=== PATIENT | male | born 1945 | race Caucasian/White ===

== ENCOUNTER 2018-01-23 10:27 | Emergency (ER) | payer MEDICARE, OTHER, SELFPAY ==
[2018-01-23 10:35] VITALS: BP 165/75; PULSE 77; RESP 18; TEMP 36.6; O2SAT 99
--- NOTE | 2018-01-23 10:56 | ED_ITS ---
HPI - Fall General Chief Complaint: Fall Stated Complaint: Fell and hit head on sidewalk Time Seen by Provider: 01/23/18 10:49 Source: patient Mode of arrival: ambulatory Limitations: no limitations History of Present Illness HPI Narrative: This is a 72-year-old male who comes to the emergency department with complaint of ground level fall and hitting the back of his head. Patient was helping move a couch and was walking backwards when he tripped and fell backwards striking the back with his head on the edge of the sidewalk. Patient states that he is not sure if he had a loss of consciousness. He remembers falling but he feels like things are a little working for a short period of time. He denies any headache at this time, he denies any vision changes, he denies any neck or back pain. He denies any nausea or vomiting. He denies any numbness or tingling or weakness of extremities. He is able to ambulate without any issue. He does not take any blood thinners. He states that he does not know when he caught did not have any bleeding. He denies any other injuries to his extremities. This happened about 10:30 a.m. Related Data Home Medications Medication Instructions Recorded Confirmed Eye Drops 1 drp OPHTHALMIC (EYE) QAM 01/23/18 01/23/18 vit C,Y-Ay-sbrnt-lutein-zeaxan 1 cap PO Q1-2D 01/23/18 01/23/18 [PreserVision AREDS 2] Allergies Allergy/AdvReac Type Severity Reaction Status Date / Time No Known Drug Allergies Allergy Verified 01/23/18 10:35 Review of Systems Review of Systems All systems reviewed & are unremarkable except as noted in HPI and below Constitutional Denies headache(s) Eyes Denies change in vision ENT Ears, Nose, Mouth, and Throat: Denies dizziness, Denies headache(s) and Denies neck pain Cardiovascular Denies chest pain and Denies dyspnea Respiratory Denies dyspnea Gastrointestinal Gastrointestinal: Denies nausea and Denies vomiting Musculoskeletal Denies back pain, Denies neck pain and Denies numbness Integumentary/Breasts Denies bleeding lesions and Denies lesions Neurologic Denies abnormal movements, Denies abnormal speech, Denies confusion, Denies dizziness, Denies headache(s), Denies lack of coordination, Reports memory loss (Possible), Denies numbness and Denies sensory deficit Psychiatric Denies confusion and Reports memory loss (Possible) Exam Narrative Exam Narrative: GEN: Patient appears in no acute distress. HEAD: No evidence of trauma except for slight bruising on the posterior scalp, no hematoma palpated, no raccoon/Sarkar sign. NECK: Nontender, painless range of motion, trachea midline Negative Nexus criteria, there is no mid line tenderness, distracting injury, altered mental status, neuro deficit, recent EtOH. EYES: PERRLA, EOMI ENT: External inspection normal, trachea is midline, TM's are normal no hemotypanum, Nares are clear, no septal hematoma, no dental or oral injury, airway is normal and with normal occlusion, No bony tenderness RESP: Chest is nontender and has symmetric movement, no ecchymosis, breath sounds are normal no crackles, wheezes or rales CVS: Heart sounds are normal, no murmur noted, No JVD. ABG/GI: Nontender, soft, normal bowel sounds, no distention, no organomegaly. NEURO: Oriented AOx3, neuro is grossly intact, sensation and motor is normal all 4 extremities moving, cranial nerves II through XII are intact, GCS is 15 PSYCH: Normal mood and affect SKIN: Intact, warm and dry, no crepitus and without decubitus BACK: No CVA tenderness, no vertebral tenderness, no step-off's, no crepitus EXT: Atraumatic, hips are nontender, no pedal edema, normal color and temperature, normal range of motion of extremities with normal tendon exam, 2+ pulses in all four extremities Initial Vital Signs Initial Vital Signs: Vital Signs Temperature 97.8 F 01/23/18 10:35 Pulse Rate 77 01/23/18 10:35 Respiratory Rate 18 01/23/18 10:35 Blood Pressure 165/75 H 01/23/18 10:35 Pulse Oximetry 99 01/23/18 10:35 PENDING SALE TO [facility] Social History Smoking Status: Never smoker Scores GCS [place] coma scale eye opening: Spontaneous [place] coma scale verbal response: Orientated [place] coma scale motor response: Obey commands [place] coma scale total score: 15 Course Orders Ordered: ED Orders 01/23/18 10:55 CT head/brain wo con Stat Vital Signs - 8 hr 01/23/18 10:35 01/23/18 12:07 Temperature 97.8 F Pulse Rate 77 61 Respiratory Rate 18 18 Blood Pressure 165/75 H 144/73 H Pulse Oximetry 99 98 MDM - Fall Imaging Data CT scan - head: Radiologist's impression: [address] [address] [address] Scan Report Signed Patient: Pérez Ewing [facility]#: [id number] : 7Acct:[id number] Age/Sex: 72 / MDate of Service: 01/23/18 Loc: ED Accession Number: [id number] Procedure: CT head/brain wo con Ordering Provider: Krys Mccoy D.O. PROCEDURE: CT HEAD/BRAIN WO CON INDICATIONS: ground level fall, ? LOC, mild bruising on scalp TECHNIQUE: Noncontrast 4.5 mm thick angled axial sections acquired from the foramen magnum to the vertex, with coronal and sagittal reformats. For radiation dose reduction, the following was used: automated exposure control, adjustment of mA and/or kV according to patient size. COMPARISON: None. FINDINGS: Image quality: Excellent. CSF spaces: Basal cisterns are patent. No extra-axial fluid collections. The ventricles are symmetric in size and shape. Brain: No intracranial bleeds or masses. There is a large fat attenuation lesion with internal soft tissue attenuation seen in the right inferior anterior frontal lobe/straight gyrus. This measures approximately 2.1 x 1.2 cm on image 11 series 2. There are additional areas of what appear to be subarachnoid fat attenuation along both sides of the anterior and posterior falx as well as at the frontoparietal lobes and the vertex. There is cerebral volume loss for age, with resultant ventricular and sulcal prominence. There are periventricular and deep white matter chronic small vessel ischemic changes. There is intracranial internal carotid artery atherosclerosis. Skull and face: Calvarium and visualized facial bones appear intact, without suspicious lesions. Mild left posterior scalp swelling. Sinuses: Visualized sinuses and mastoids are clear. 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 There is complex appearance of the lesion seen in the right anterior-inferior frontal lobe and nonemergent followup with MRI of the brain with and without contrast is necessary, especially given the absence of comparison studies. Findings and recommendations are personally telephoned and discussed with Dr. Mccoy in the emergency department on 01/23/18. No acute intracranial process seen. Mild left posterior scalp swelling. Dictated by: Arnaud Almeida M.D. on 01/23/2018 at 11:16 Approved by: Arnaud Almeida M.D. on 01/23/2018 at 11:33 MDM Narrative Medical decision making narrative: Dr. Gongora call with results of patient's head CT. They do see multiple areas of fat attenuation suggestive of either multiple intracranial lipoma is and/or a chronic ruptured dermoid. Discussed that patient needs nonemergent follow-up with MRI of the brain with and without contrast especially as there is no compression or comparison studies. Patient has not had any neurologic changes or other issues that would suggest that he needs emergent MRI at this time. Findings were discussed with patient and referred back to his primary care for further evaluation. We also discussed signs and symptoms for potential concussion as he felt sort of murky about the timeline although he was not sure that he had a loss of consciousness with his fall. Discharge Plan Departure Patient Disposition: Home Clinical Impression: Concussion Discharge Date/Time: 01/23/18 12:08 Interventions: ED Discharge Assessment Last Done: 01/23/18 12:07 Instructions: Concussion Activity Restrictions/Additional Instructions: Your CT today shows several areas suggesting either multiple lipoma and/or a ruptured dermoid within the brain. Radiology recommends a nonemergent follow- up with MRI of the brain. Call your primary care physician today to set up a follow-up appointment for this imaging. Return to the emergency department for sudden severe headaches, vision changes, new weakness, numbness or decreased sensation or persistent vomiting. Or any other new or concerning symptoms. Prescriptions: No Action vit C,E-Pt-qhchv-lutein-zeaxan [PreserVision AREDS 2] [id number] mg-unit-mg- mg Capsule 1 cap PO Q1-2D RF: 0 Eye Drops 1 drp ophthalmic (eye) QAM RF: 0
[2018-01-23 12:07] VITALS: BP 144/73; PULSE 61; RESP 18; O2SAT 98
== END 2018-01-23 12:08 | disposition home or self-care (01) ==
PROVIDERS: Emergency Provider Emergency Medicine; Family Provider Family Medicine; PCP Family Medicine
DX: S06.0X1A Concussion with loss of consciousness of 30 minutes or less, initial encounter (principal); W01.198A Fall on same level from slipping, tripping and stumbling with subsequent striking against other object, initial encounter
CPT/HCPCS: 70450; 99282; 99284

== ENCOUNTER → 2018-02-04 17:36 | Outpatient (CLI) | payer MEDICARE, OTHER, SELFPAY ==
--- NOTE | 2018-02-04 17:41 | DI.MRI.S_ITS ---
PROCEDURE: MR HEAD/BRAIN WO/W CON INDICATIONS: POST CONCUSSION SYNDROME TECHNIQUE: Noncontrast axial T1 spin echo, axial T2 fast spin echo, sagittal and axial FLAIR, coronal T2 fast spin echo, axial gradient echo, axial diffusion and ADC through the brain. After the administration of contrast, axial and coronal T1 spin echo with fat saturation through the brain. COMPARISON: Head CT dated 01/23/18. FINDINGS: Image quality: Excellent. CSF spaces: Basal cisterns are patent. No extra-axial fluid collections. Ventricles are normal in size and shape. Brain: No midline shift. No intracranial bleeds. The previously described lesion in the anterior right frontal lobe demonstrates fat signal intensity without definite enhancement. There are internal stippled appearance, and possible septation. This measures 1.3 x 2.8 cm image 13 series 6. No abnormal intracranial enhancement. Other low-attenuation areas described within the CT on 01/23/18 demonstrate no associated enhancement and fluid signal intensity (rather than fat) presumably atrophy or encephalomalacia. Incidental empty sella appearance, technically non-specific. There is cerebral volume loss for age. There is periventricular white matter chronic small vessel ischemic change. The brainstem appears normal. Diffusion-weighted images demonstrate no acute ischemic insults. No chronic ischemic insults. Normal intravascular flow voids are present. Skull and face: Calvarial marrow is normal in signal. Orbits appear normal. Sinuses: Mild bilateral maxillary sinus disease IMPRESSION: Fat signal intensity lesion involving the anterior right frontal lobe, as seen on the prior comparison head CT. No definite associated enhancement although mildly complex internal appearance. Recommend continued followup with a contrast-enhanced brain MRI in 3 months given the absence of more remote comparison studies to exclude malignant possibilities. Dictated by: Arnaud Almeida M.D. on 02/05/2018 at 7:53 Approved by: Arnaud Almeida M.D. on 02/05/2018 at 7:53
== END ==
PROVIDERS: Family Provider Family Medicine; PCP Family Medicine; Visit Provider Family Medicine
DX: F07.81 Postconcussional syndrome (principal)
CPT/HCPCS: 70553; A9579

== ENCOUNTER → 2019-03-17 10:17 | Outpatient (CLI) | payer MEDICARE, OTHER, SELFPAY ==
--- NOTE | 2019-03-17 | DI.RAD.S_ITS ---
PROCEDURE: XR SHOULDER RT MIN 2V INDICATIONS: RIGHT SHOULDER PAIN TECHNIQUE: 3 views of the shoulder were acquired. COMPARISON: [facility], CR, CLAVICLE LEFT 2 VIEWS, 12/30/2013, 16:28. FINDINGS: Bones: No fractures or dislocations. No suspicious bony lesions. Visualized ribs appear intact. Soft tissues: No suspicious soft tissue calcifications. IMPRESSION: No definite source of pain is found. Depending on clinical status followup by MR scanning may be warranted. Dictated by: Kanu Schneider M.D. on 03/17/2019 at 12:11 Approved by: Kanu Schneider M.D. on 03/17/2019 at 12:12
== END ==
PROVIDERS: PCP Family Medicine; Visit Provider Family Medicine
DX: M25.511 Pain in right shoulder (principal)
CPT/HCPCS: 73030

== ENCOUNTER 2019-06-21 12:39 | Day surgery (SDC) | payer MEDICARE, OTHER, SELFPAY ==
--- NOTE | 2019-06-21 | PATH_ITS ---
[facility] Accession Number: [id number] . 01 Material submitted: . PART A: colon - 8MM TRANSVERSE COLON POLYP AND 6 MM TRANSVERSE COLON POLYP PART B: colon - 3MM SIGMOID COLON POLYP PART C: colon - 8MM SIGMOID COLON POLYP AND 2MM SIGMOID COLON POLYP . 02 Diagnosis: A. Transverse Colon Polyps, 8 mm, 6 mm, Biopsies: Fragments of tubular adenoma (two polyps removed). . B. Sigmoid Colon Polyp, 3 mm, Biopsy: Tubular adenoma. . C. Sigmoid Colon Polyps, 8 mm, 2 mm, Biopsies: Tubular adenoma x1. Hyperplastic polyp x1. [facility] 06/23/2019 0936 Local . 02 Electronically signed: . Sergio Abraham MD, PhD, Pathologist NPI- [id number] . 01 Gross description: . A. Received in formalin and labeled with 8 mm transverse colon polyp and 6 mm transverse colon polyp are three fragments of sorenson, soft tissue measuring 0.5 x 0.2 x 0.1 to 0.3 x 0.2 x 0.2 cm, and one larger fragment of sorenson, soft tissue measuring 0.6 x 0.3 x 0.5 cm. The three smaller fragments are entirely submitted in cassette A1. The larger fragment is inked at the possible resection margin, trisected, and entirely submitted in cassette A2. B. Received in formalin and labeled with 3 mm sigmoid colon polyp are three fragments of sorenson soft tissue measuring 0.4 x 0.3 x 0.3 to 0.3 x 0.3 x 0.1 cm. All three fragments are entirely submitted in cassette B1. C. Received in formalin and labeled with 8 mm sigmoid colon polyp and 2 mm sigmoid colon polyp are two fragments of sorenson soft tissue measuring 0.7 x 0.7 x 0.3 to 0.3 x 0.2 x 0.2 cm. The larger fragment is trisected and entirely submitted in cassette C1. The smaller fragment is entirely submitted in cassette C2. (BJ:[id number]) /MRV 06/22/2019 0805 Local . 02 Pathologist provided ICD-10: D12.3, D12.5 . 02 CPT . 953638, 870503, 714533 Performed at: 01 [facility] [address] [id number] MD Armin Flores MD Phone: [phone] Performed at: 02 [facility] [address] [place], [place] [id number] MD Letty Mays MD Phone: [phone]
--- NOTE | 2019-06-21 12:23 | PM.HP.1 ---
History of Present Illness History of Present Illness Date Patient Seen: 06/21/19 Chief complaint: [id number] Narrative: 74 year old male comes in today for consideration of a screening colonoscopy. Last colonoscopy on 02/11/2008 indicated for screening, normal. Prior to that had a colonoscopy approximately 2002 that revealed 1 tubular adenoma, size unknown. There have been no lower GI symptoms suggesting disease such as change in bowel habits, bleeding, abdominal pain or anemia. There's been no family history of colon cancer or colon polyps. Overall health issues have been stable, including no major cardiac events for at least 6 weeks. PCP: Dr. Santana Past medical history: Pre-diabetes Lumbar disc disease Seborrheic keratosis Sebaceous cyst Actinic keratosis Mass lesion, right anterior lobe brain, likely fatty lesion Lipoma AC joint pain Postconcussion syndrome Hyperlipidemia Borderline anemia Acute gout Eustachian tube dysfunction Past surgical history: Cholecystectomy, 2004 Family history: No colon cancer or colon polyps Social history: . Patient History Family & Social History Tobacco & Substance use: Smoking Status Never smoker alcohol intake frequency 0-2 drinks per day Substance Use Type does not use Meds Home Medications and Allergies Home Medications Medication Instructions Recorded Confirmed Type Eye Drops 1 drp OPHTHALMIC (EYE) QAM 01/23/18 01/23/18 History vit C,Q-Ao-xuhgr-lutein-zeaxan 1 cap PO Q1-2D 01/23/18 01/23/18 History [PreserVision AREDS 2] Allergies Allergy/AdvReac Type Severity Reaction Status Date / Time No Known Drug Allergies Allergy Verified 01/23/18 10:35 Review of Systems Review of Systems ROS: Yes All systems reviewed with the patient and are negative except as otherwise documented Exam Narrative Exam Narrative: GENERAL: Alert and oriented, appearing stated age and in no acute distress. HEENT: Head normocephalic/atraumatic. LUNGS: Clear to ausculation bilaterally, no wheezes, rhonchi or rales. CV: Normal S1 and S2 with regular rate and rhythm, no audible murmurs, rubs or gallops. ABDOMEN: Soft, non-tender, non-distended, no organomegaly. Positive bowel sounds. EXTREMITIES: No clubbing, cyanosis, or edema. NEURO: Cranial nerves II through XII grossly intact, no focal deficits. PSYCH: Alert and oriented x 3. SKIN: No concerning lesions. Assessment & Plan Assessment & Plan narrative: 1. History of colon polyps 2. Screening for colon cancer Plan for colonoscopy. The nature and character of the procedure as well as anticipated results were discussed. The possibility of not completing the procedure was also discussed. Possible complications including aspiration pneumonia, bleeding, perforation and reaction to medications either for sedation or preparation and missed lesions were discussed. Questions were answered and proceeding to the colonoscopy was elected. Informed consent signed. I sincerely appreciate the referral allowing me to participate in this patient's care. Please contact me with any questions or concerns.
--- NOTE | 2019-06-21 12:31 | PM.OP.ENDO ---
Operative Date/Time/Diagnoses Date of procedure: 06/21/19 Time of procedure: 14:37 Pre-op diagnosis: 1. History of colon polyps 2. Screening for colon cancer Post-op diagnosis: other (1. Transverse polyp x2, 6-8 mm, sigmoid polyp x3, 2-8 mm) Procedure & Clinicians Study performed: Colonoscopy Same procedure as scheduled: Yes Indications: 1. History of colon polyps 2. Screening for colon cancer Surgeon: Layla Aly Procedure Notes SCOAP/Timeout: 14:34 Procedure in detail: ENDOSCOPIST: Layla Aly MD Sedation RN: Melanie Hall RN Sedation start time: 14:35 Sedation end time: 15:25 PROCEDURE: Colonoscopy with cold snare and methylene blue left INDICATIONS: 1. History of colon polyp 2. Screening for colon cancer MEDICATION: Levsin 0.125 mg sublingual, incremental doses of Versed and fentanyl until appropriate level sedation achieved. ASA CLASS: 2 CECAL WITHDRAWAL TIME: 40 COMPLICATIONS: None. EXTENT OF PROCEDURE: Cecum. QUALITY OF PREP: Good with portions of liquid stool. PROCEDURE: Prior to insertion of the colonoscope, a digital rectal examination was accomplished with circumferential palpation of the distal rectal mucosa without significant findings being noted. The high-definition colonoscope was passed into the rectum in the usual fashion and advanced over to the cecum without difficulty. The ileocecal valve, appendiceal stoma, and medial wall all could be inspected and no abnormalities were seen. ASCENDING COLON: As the colonoscope was withdrawn, care was taken to expose and inspect the haustral folds and no abnormalities were seen. HEPATIC FLEXURE: Normal no polyps, diverticula or other abnormalities. TRANSVERSE COLON: There was an 8 mm polyp lifted with methylene blue and removed with cold snare. A 6 mm polyp was also appreciated removed with cold biopsy forceps. Otherwise, no diverticula or other abnormalities. DESCENDING COLON: Normal no polyps, diverticula, or other abnormalities. SIGMOID COLON: 3 polyps noted, 2, 3, and 8 mm, the smaller polyps were removed with cold snare. The 8 mm polyp was lifted with methylene blue and lives with cold snare. Otherwise, minor diverticulosis seen but no other abnormalities. RECTUM: Normal. J maneuver was produced. There was no significant perianal disease. The J maneuver was broken. The remainder of the rectum was inspected and there was no external hemorrhoid disease. The scope was withdrawn. IMPRESSION: 1. Transverse polyp x2, 6 and 8 mm. Larger polyp lifted with methylene blue and removed with cold snare. 6 mm polyp removed with cold biopsy forceps. 2. Sigmoid polyp x3, 2-8 mm, largest polyp lifted with methylene blue and removed with cold snare. Smaller polyps removed with cold biopsy forceps. 3. Diverticulosis, left-sided PLAN: 1. Follow-up in clinic status post pathology results. The possibility of a missed lesion including a malignancy has been discussed with the patient previously. Potential alarm symptoms have been discussed and should be reported immediately. Scope withdrawal time: 40 Sedation minutes: 50 Findings: diverticulosis Specimen(s): other (as above) Complications: none Impression: As above. Post-procedure Recommendations: Will call with biopsy results Follow up: weeks (2) Disposition: PACU
[2019-06-21] MEDS: SODIUM CHLORIDE 0.9% 1,000 ML 200 ML IV (13:09)
[2019-06-21] MEDS: HYOSCYAMINE 0.125 MG TABLET PO (13:10)
[2019-06-21 13:14] VITALS: BP 143/74; PULSE 63; RESP 14; TEMP 36.6; O2SAT 96
[2019-06-21] MEDS: fentaNYL 250 MCG/5 ML INJ IV (15:38)
[2019-06-21] MEDS: MIDAZOLAM 5 MG/5 ML VIAL IV (15:39)
[2019-06-21] MEDS: METHYLENE BLUE 50 MG/10 ML VIAL IV (15:40)
[2019-06-21 15:52] VITALS: BP 149/76; PULSE 59; RESP 15; TEMP 36.2; O2SAT 97
== END 2019-06-21 16:05 | disposition home or self-care (01) ==
PROVIDERS: PCP Family Medicine; Referring Provider Student in an Organized Health Care Education/Training Program; Visit Provider Student in an Organized Health Care Education/Training Program
PROC: 0DJD8ZZ Inspection of Lower Intestinal Tract, Via Natural or Artificial Opening Endoscopic (ICD-10-PCS; CPT 45378; principal; 2019-06-21 14:00)
DX: Z12.11 Encounter for screening for malignant neoplasm of colon (principal); Z86.010 Personal history of colon polyps; K57.30 Diverticulosis of large intestine without perforation or abscess without bleeding; D12.3 Benign neoplasm of transverse colon; D12.5 Benign neoplasm of sigmoid colon
CPT/HCPCS: 45385; J2250; J3010; Q9968

== ENCOUNTER 2019-07-28 17:27 | Emergency (ER) | payer MEDICARE, OTHER, SELFPAY ==
[2019-07-28] VITALS (10 sets, daily range): BP systolic 150–174; BP diastolic 72–88; PULSE 70–87; RESP 10–21; TEMP 36.3–36.9; O2SAT 96–100
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
--- NOTE | 2019-07-28 17:18 | DI.RAD.S_ITS ---
PROCEDURE: XR CHEST 1V INDICATIONS: syncope TECHNIQUE: One view of the chest was acquired. COMPARISON: None. FINDINGS: Surgical changes and devices: None. Lungs and pleura: Lungs are clear. No pleural effusions or pneumothorax. Mediastinum: Mediastinal contours appear normal. Heart size is normal. Bones and chest wall: No suspicious bony lesions. Chronic left midshaft clavicular fracture. Overlying soft tissues appear unremarkable. IMPRESSION: No acute process. Dictated by: Kimberly Solis M.D. on 07/28/2019 at 17:54 Approved by: Kimberly Solis M.D. on 07/28/2019 at 17:55
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
--- NOTE | 2019-07-28 17:37 | ED.TRAUMA ---
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 there is a wound over the fracture site, you have been given antibiotics to prevent infection. Please take these as directed. Your prescriptions were sent to [facility] in [place]. You have been prescribed a medication for nausea, the pain medication can make you nauseated. You have been prescribed a narcotic medication, this medication can make you drowsy. Do not drive while using this medication or perform activities that require mental alertness. These medications can also make you constipated, please use [id number] docusate sodium as needed for constipation. You have sustained a concussion. Please reduce activity that would worsen symptoms such as bright lights, prolonged reading, prolonged screen time, or rigorous activity. You will receive a call from the [facility] in the next few days to schedule a follow-up appointment. This appointment may be via telephone or telemedicine. They will instructed you as needed. Return emergency department for any new or worsening symptoms such as vision changes, uncontrollable vomiting, altered mental status, or any other concerns. Prescriptions: New amoxicillin-pot clavulanate [Augmentin] 875-125 mg tablet 1 tab PO BID 10 Days Qty: 20 RF: 0 hydrocodone-acetaminophen [Avenal] 5-325 mg tablet 1 tab PO BID PRN (Reason: pain) Qty: 14 RF: 0 ondansetron 4 mg tablet,disintegrating 4 mg PO Q8H PRN (Reason: nausea and vomiting) Qty: 14 RF: 0 No Action vit C,F-Rz-ivwxm-lutein-zeaxan [PreserVision AREDS-2] [id number]-xwsc-ij-mg Capsule 1 cap PO Q1-2D RF: 0 Eye Drops 1 drp ophthalmic (eye) QAM RF: 0 Referrals: Hal Santana MD [Primary Care Provider] -
[2019-07-28 17:40] LABS: Add Manual Diff / Slide Review NO; Basophils Absolute Auto 0 /uL (0-100); Basophils Percent Auto 0.4 % (0-2); Eosinophils Absolute Auto 0 /uL (0-450); Eosinophils Percent Auto 0.5 % (2-4); Hematocrit 37.1 % (41-53); Hemoglobin 12.8 g/dL (13.5-17.5); Lymphocytes Absolute Auto 1200 /uL (1100-4500); Lymphocytes Percent Auto 26.9 % (25-40); Mean Corpuscular HGB Conc 34.5 % (30-36); Mean Corpuscular Hemoglobin 33.6 PG (26-34); Mean Corpuscular Volume 97.5 fL (80-100); Monocytes Absolute Auto 300 /uL (0-900); Monocytes Percent Auto 7.6 % (3-14); Neutrophils Absolute Auto 3000 /uL (1500-7000); Neutrophils Percent Auto 64.6 % (50-75); Platelet Count 195 X10^3/uL (150-400); Red Blood Cell Count 3.81 X10^6/uL (4.5-5.9); Red Cell Distribution Width 14.9 % (11.6-14.8); White Blood Cell Count 4.6 X10^3/uL (4.5-11.0)
[2019-07-28 17:52] LABS: Alanine Aminotransferase 36 IU/L (<50); Albumin 4.3 g/dL (3.5-5.0); Albumin Globulin Ratio 1.6 (1.0-2.8); Alkaline Phosphatase 64 U/L (38-126); Aspartate Aminotransferase 50 IU/L (17-59); Bilirubin Total 0.5 mg/dL (0.2-1.3); Blood Urea Nitrogen 19 mg/dL (9-20); Calcium 9.4 mg/dL (8.4-10.2); Carbon Dioxide 26 mmol/L (22-32); Chloride 104 mmol/L (98-107); Creatine Kinase 73 U/L (55-170); Estimated Glomerular Filt Rate > 60.0 mL/min (>60); Ethanol (ETOH) < 10 mg/dL; Globulin 2.7 g/dL (1.7-4.1); Glucose 136 mg/dL (80-110); HEMOLYSIS 43 (0-50); Lipase 56 U/L (23-300); Potassium 4.4 mmol/L (3.4-5.1); Sodium 137 mmol/L (137-145)
[2019-07-28 18:03] LABS: Troponin I < 0.012 ng/mL (0.01-0.034)
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
[2019-07-28] MEDS: AMPICILLIN/SULBACTAM 3 GM 3 GM in SODIUM CHLORIDE 0.9% 100 ML IV (18:48)
--- NOTE | 2019-07-28 18:56 | PC.NURSE ---
patient resting in bed and denies complaints at this time. lights dimmed, call light in reach. vss, abx infusing.
[2019-07-28] MEDS: ONDANSETRON 4 MG ODT SL (20:55)
[2019-07-28] MEDS: MORPHINE 2 MG/ML INJ IV (20:55)
[2019-07-28] MEDS: DIPHTH,PERTUSS(ACELL),TET PED/PF 0.5 ML VIAL IM (20:56)
[2019-07-28] MEDS: HYDROCODONE/ACET 5/325 PREPACK 1 BOTTLE MISC (21:40)
[2019-07-28] MEDS: ONDANSETRON 4 MG ODT PREPACK 1 BOTTLE MISC (21:45)
== END 2019-07-28 22:35 | disposition home or self-care (01) ==
PROVIDERS: Emergency Provider Nurse Practitioner; PCP Family Medicine
DX: S02.69XA Fracture of mandible of other specified site, initial encounter for closed fracture (principal); S02.40EB Zygomatic fracture, right side, initial encounter for open fracture; S02.401A Maxillary fracture, unspecified side, initial encounter for closed fracture; V19.9XXA Pedal cyclist (driver) (passenger) injured in unspecified traffic accident, initial encounter; Z23 Encounter for immunization
CPT/HCPCS: 70450; 70486; 71045; 72125; 72170; 80053; 80320; 82550; 83690; 84484; 85025; 86850; 86900; 86901; 90471; 93005; 96365; 96375; 99285; J0295; J2270

== ENCOUNTER → 2019-09-12 13:27 | Outpatient (CLI) | payer MEDICARE, OTHER, SELFPAY ==
[2019-09-13 08:39] LABS: COVID19 Sendout NOT DETECTED (Not Detect)
== END ==
PROVIDERS: PCP Family Medicine; Visit Provider Physician Assistant
DX: Z01.818 Encounter for other preprocedural examination (principal)
CPT/HCPCS: 87635

== ENCOUNTER 2019-09-15 06:30 | Day surgery (SDC) | payer MEDICARE, OTHER, SELFPAY ==
--- NOTE | 2019-09-14 17:39 | PM.PREOP ---
Pre-operative Note Interval Note History & Physical reviewed/Exam performed by Physician: Yes Changes to H&P: No H&P completed within 30 days and has changed as indicated here:: Covid 19 testing negative within 72 hours of surgery. Pre diabetic. Fasting glucose is 89.
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
[2019-09-15] MEDS: PROPARACAINE 0.5% OPHTH SOL 2 DROPS EYE-OP (07:17)
[2019-09-15] MEDS: CATARACT EYE COMPOUND (10 DROPS/SYRINGE) 3 DROPS EYE-OP (07:17)
[2019-09-15 07:19] VITALS: BP 126/71; PULSE 51; RESP 20; TEMP 36.3; O2SAT 97; BMI 24.3
[2019-09-15] MEDS: CHONDROIDTIN/SOD HYALURONATE 1.05 ML SYRINGE INTRAOCULA (08:15)
[2019-09-15] MEDS: ERYTHROMYCIN OPHTH 1 GM OINT 1 APPLIC EYE-LEFT (08:20)
[2019-09-15] MEDS: HYALURONATE SODIUM 10 MG/ML SYRINGE INJ (08:21)
[2019-09-15] MEDS: MOXIFLOXACIN INJ 5 MG/ML VIAL EYE-OP (08:22)
[2019-09-15] MEDS: PHENYLEPHRINE/LIDOCAINE VIAL (OR) 0.2 ML EYE-OP (08:22)
[2019-09-15] MEDS: TRIAMCINOLONE 50 MG/5 ML VIAL INJ (08:23)
[2019-09-15] MEDS: BALANCED SALT IRRIG SOLN NO.2 500 ML, EPINEPHrine 1 MG IRR (08:23)
[2019-09-15] MEDS: LIDOCAINE 2% 4 ML, BUPIVACAINE 0.5% (PF) 4 ML, HYALURONIDASE 150 UNIT INJ (08:25)
[2019-09-15] MEDS: LIDOCAINE JELLY 2% 5 ML 1 APPLIC TOP (08:27)
[2019-09-15 08:38] VITALS: BP 133/81; PULSE 54; RESP 12; TEMP 36.1; O2SAT 99
== END 2019-09-15 09:02 | disposition home or self-care (01) ==
LOC: OR 06:34
PROVIDERS: PCP Family Medicine; Visit Provider Ophthalmology
PROC: (CPT 66984; principal; 2019-09-15 07:45)
DX: H25.812 Combined forms of age-related cataract, left eye (principal); M79.7 Fibromyalgia; R73.03 Prediabetes; Z87.828 Personal history of other (healed) physical injury and trauma
CPT/HCPCS: 66984; J0171; J2250; J2704; J3301; J3470

== ENCOUNTER → 2019-09-26 10:09 | Outpatient (CLI) | payer MEDICARE, OTHER, SELFPAY ==
[2019-09-27 03:38] LABS: COVID19 Sendout Not Detected (Not Detect)
== END ==
PROVIDERS: PCP Family Medicine; Visit Provider Physician Assistant
DX: Z01.812 Encounter for preprocedural laboratory examination (principal)
CPT/HCPCS: 87635

== ENCOUNTER 2019-09-29 06:20 | Day surgery (SDC) | payer MEDICARE, OTHER, SELFPAY ==
--- NOTE | 2019-09-26 15:14 | PM.PREOP ---
Pre-operative Note COVID-19 COVID-19 status: Negative Result date/Date tested (Pos, Neg/Pending): 09/26/19 Interval Note History & Physical reviewed/Exam performed by Physician: Yes Changes to H&P: No H&P completed within 30 days and has changed as indicated here:: Now off oral prednisone for fibromyalgia. Has some left foot discomfort.
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
[2019-09-29] MEDS: PROPARACAINE 0.5% OPHTH SOL 2 DROPS EYE-OP (07:15)
[2019-09-29] MEDS: CATARACT EYE COMPOUND (10 DROPS/SYRINGE) 3 DROPS EYE-OP (07:17)
[2019-09-29 07:20] VITALS: BP 136/78; PULSE 71; RESP 16; TEMP 36.6; O2SAT 99; BMI 24.7
--- NOTE | 2019-09-29 08:03 | SUR.OPER ---
Supine on eye stretcher, head on extension cradle secured with tape. Arms tucked at sides with blanket. Pillow under knees.
[2019-09-29] MEDS: PHENYLEPHRINE/LIDOCAINE VIAL (OR) 0.2 ML EYE-OP (08:05)
[2019-09-29] MEDS: LIDOCAINE 2% 4 ML, BUPIVACAINE 0.5% (PF) 4 ML, HYALURONIDASE 150 UNIT INJ (08:07)
[2019-09-29] MEDS: TRIAMCINOLONE 50 MG/5 ML VIAL INJ (08:08)
[2019-09-29] MEDS: MOXIFLOXACIN INJ 5 MG/ML VIAL EYE-OP (08:08)
[2019-09-29] MEDS: HYALURONATE SODIUM 10 MG/ML SYRINGE INJ (08:09)
[2019-09-29] MEDS: CHONDROIDTIN/SOD HYALURONATE 1.05 ML SYRINGE INTRAOCULA (08:09)
[2019-09-29] MEDS: BALANCED SALT IRRIG SOLN NO.2 500 ML, EPINEPHrine 1 MG IRR (08:10)
[2019-09-29] MEDS: ERYTHROMYCIN OPHTH 1 GM OINT 1 APPLIC EYE-RIGHT (08:11)
[2019-09-29 08:42] VITALS: BP 133/72; PULSE 74; RESP 16; TEMP 36.6; O2SAT 97
--- NOTE | 2019-09-29 08:45 | SUR.PHASEII ---
stable, pleasant, oriented, dressing, has his wallet.
== END 2019-09-29 08:50 | disposition home or self-care (01) ==
PROVIDERS: PCP Family Medicine; Referring Provider Ophthalmology; Visit Provider Ophthalmology
PROC: (CPT 66984; principal; 2019-09-29 07:45)
DX: H25.811 Combined forms of age-related cataract, right eye (principal); R73.03 Prediabetes; M79.7 Fibromyalgia
CPT/HCPCS: 66984; J0171; J2250; J2704; J3301; J3470

== ENCOUNTER 2020-03-02 09:00 | Outpatient (RCR) | payer MEDICARE, OTHER, SELFPAY ==
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
--- NOTE | 2019-10-06 11:49 | PT.OPPOC ---
Physical, Occupational & Speech Therapy At [facility] Current Diagnoses Pain in right shoulder (10/06/19) Stiffness of right shoulder, not elsewhere classified (10/06/19) Stiffness of left shoulder, not elsewhere classified (10/06/19) Weakness (10/06/19) Visit Care Team Role Provider Type Hal Santana MD Attending Provider Physician Primary Care Provider Referring Provider Specialty: [facility] Address: [address] [place] [address], [facility] [place], [facility] Email: [email or web address] Plan Of Care PT-OP-T Assessment and Plan Start: 10/06/19 08:10 Freq: Status: Active Protocol: Document 10/06/19 08:12 [facility] (Rec: 10/06/19 09:00 [facility] [id number]) Physical Therapy Assessment Rehab Potential Rehabilitation Potential Good Evaluation Complexity Number of Personal Factors/Comorbidities 1-2 Number of Body Systems Impaired 4 or More Clinical Presentation at Evaluation Evolving Impairments Impairments Activity Tolerance,Balance, Functional Activities, Functional Mobility,Pain, Posture,ROM,Soft Tissue Mobility,Strength Goals activities Upper Extremity Surgeon Goal (LTG) Pt will be able to ride bike including over bumps without inc pain. LTG Duration 12/06/19 strength Short Term Goal (STG) Pt will be indep with HEP STG Duration 11/05/19 Mcfp Goal (LTG) Pt will have 5/5 UE strength B without pain in order to allow him to do his typical daily activtiies. LTG Duration 12/06/19 ROM Short Term Goal (STG) Pt will improve AROM of RUE to that of LUE. STG Duration 11/05/19 Upper Extremity Surgeon Goal (LTG) Pt will be able to reach behind himself in car, acroos body when coughing & play guitar without pain. LTG Duration 12/06/19 Assessment Summary Assessment Pt presents with B shoulder pain R>L that limits his daily activities. Pt has been diagnosed with polymyalgia rheumatica recently which likely contributes to his pain . He has been taking meds per MD that have helped significantly but is still limited in shoulder mobility and pain. He presents with positive testing for supraspinatus tendinosis, biceps tendinosis, and possible impingement syndrome. He has limited ROM and pain with end ranges especially with RUE. He has significant fwd rounded posture which likely contributes to this pain. He woudl benefit from skilled PT to address his deficits and return him to typical activities with less pain. Physical Therapy Plan Frequency and Duration Frequency of Treatment 1-2x/week Duration of Treatment 2 months Plan of Care Start Date 10/06/19 Plan of Care End Date 12/06/19 Therapeutic Interventions Therapeutic Interventions Aquatic Therapy,Home Exercise Program,Joint Mobilizations, Manual Therapy,Neuromuscular Re-education,Patient/Caregiver Education,Self-Care/Home Management,Soft Tissue Mobilization,Taping, Therapeutic Activities, Therapeutic Exercises Modalities Cold Pack/Ice Massage,Electric Stimulation,Hot Packs, Infrared Therapy,Iontophoresis ,Ultrasound Next Visit Focus/Plan Next Note Type Treatment Note Next Visit Plan review HEP, work on thoracic spine & STM around shoulder, thoracic mobility activities ( foam roll, roll & reach) Plan of Care Dates Plan of Care Start Date 10/06/19 Plan of Care End Date 12/06/19 Electronically Signed by: Sarah Park, PT 10/06/19 0729 Please Sign and Return: I have reviewed this Plan of Care and certify that the skilled therapy services above are required to meet the patient?s needs. Physician Signature Date Printed Name and Credentials Clinical Instructor Signature Printed Name and Credentials
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
--- NOTE | 2019-11-22 17:48 | PT.OPPOC ---
Physical, Occupational & Speech Therapy At [facility] Current Diagnoses Pain in right shoulder (11/22/19) Stiffness of right shoulder, not elsewhere classified (11/22/19) Stiffness of left shoulder, not elsewhere classified (11/22/19) Weakness (11/22/19) Visit Care Team Role Provider Type Hal Santana MD Attending Provider Physician Primary Care Provider Referring Provider Specialty: [facility] Address: [address] [place] [address], [facility] [place], [address] Email: [email or web address] Plan Of Care PT-OP-T Assessment and Plan Start: 10/06/19 08:10 Freq: Status: Active Protocol: Document 11/22/19 09:11 [facility] (Rec: 11/22/19 12:22 [facility] [id number]) Physical Therapy Assessment Goals activities Group Home Goal (LTG) Pt will be able to ride bike including over bumps without inc pain.11/21-able to do small bumps only large bumps painful LTG Duration 01/21 strength Short Term Goal (STG) Pt will be indep with HEP STG Duration achieved Group Home Goal (LTG) Pt will have 5/5 UE strength B without pain in order to allow him to do his typical daily activtiies. 11/21-signfiicant improvement LTG Duration 01/22/20 ROM Short Term Goal (STG) Pt will improve AROM of RUE to that of LUE 11/21-achieved all but IR & ext STG Duration 12/22/19 Group Home Goal (LTG) Pt will be able to reach behind himself in car, acroos body when coughing & play guitar without pain. LTG Duration 01/22/20 Assessment Summary Assessment Pt has made excellent progress with ROM & strength. He has equal movements in all planes excepet IR. He is improving with his strength and funcitonal ability. He would benefit from cont PT to cont to work on deficits and continued pain especailly w/ reaching behind motions. Improved ability to perform serratus puch today and inc ROM of IR behind back after manual Physical Therapy Plan Frequency and Duration Frequency of Treatment 1-2x/week Duration of Treatment 2 months Plan of Care Start Date 11/22/19 Plan of Care End Date 01/22/20 Therapeutic Interventions Therapeutic Interventions Aquatic Therapy,Home Exercise Program,Joint Mobilizations, Manual Therapy,Neuromuscular Re-education,Patient/Caregiver Education,Self-Care/Home Management,Soft Tissue Mobilization,Taping, Therapeutic Activities, Therapeutic Exercises Modalities Cold Pack/Ice Massage,Electric Stimulation,Hot Packs, Infrared Therapy,Iontophoresis ,Ultrasound Next Visit Focus/Plan Next Note Type Treatment Note Next Visit Plan review serratus punch at wall, try HAbd at wall, work on tspine & lats, work on IR & ext motion Plan of Care Dates Plan of Care Start Date 11/22/19 Plan of Care End Date 01/22/20 Electronically Signed by: Sarah Park, PT 11/22/19 [id number] Please Sign and Return: I have reviewed this Plan of Care and certify that the skilled therapy services above are required to meet the patient?s needs. Physician Signature Date Printed Name and Credentials Clinical Instructor Signature Printed Name and Credentials
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
--- NOTE | 2020-01-19 10:41 | PT.OPPOC ---
Physical, Occupational & Speech Therapy At [facility] Current Diagnoses Pain in right shoulder (01/19/20) Stiffness of right shoulder, not elsewhere classified (01/19/20) Stiffness of left shoulder, not elsewhere classified (01/19/20) Weakness (01/19/20) Visit Care Team Role Provider Type Hal Santana MD Attending Provider Physician Primary Care Provider Referring Provider Specialty: [facility] Address: [address] [place] [address], [place], [address] Email: [email or web address] Plan Of Care PT-OP-T Assessment and Plan Start: 10/06/19 08:10 Freq: Status: Active Protocol: Document 01/19/20 08:58 [facility] (Rec: 01/19/20 10:04 [facility] [id number]) Physical Therapy Assessment Goals activities [facility] Goal (LTG) Pt will be able to ride bike including over bumps without inc pain.11/21-able to do small bumps only large bumps painful LTG Duration achieved strength Short Term Goal (STG) Pt will be indep with HEP STG Duration achieved [facility] Goal (LTG) Pt will have 5/5 UE strength B without pain in order to allow him to do his typical daily activtiies. 11/21-signfiicant improvement 01/18-all but ER achieved LTG Duration 03/23/20 ROM Short Term Goal (STG) Pt will improve AROM of RUE to that of LUE 11/21-achieved all but IR & ext STG Duration avhieved [facility] Goal (LTG) Pt will be able to reach behind himself in car, acroos body when coughing & play guitar without pain. LTG Duration 02/22/20 Assessment Summary Assessment Pt is making excellent progressiion in strength, ROM and functional ability. Plan to work on solidification of HEP & work on return to all activities with no issue over next couple sessions. He has mild limitiations at this point that would benefit freom cont PT Physical Therapy Plan Frequency and Duration Frequency of Treatment 1x/Week Duration of Treatment 2 months Plan of Care Start Date 01/19/20 Plan of Care End Date 03/20/20 Therapeutic Interventions Therapeutic Interventions Aquatic Therapy,Home Exercise Program,Joint Mobilizations, Manual Therapy,Neuromuscular Re-education,Patient/Caregiver Education,Self-Care/Home Management,Soft Tissue Mobilization,Taping, Therapeutic Activities, Therapeutic Exercises Modalities Cold Pack/Ice Massage,Electric Stimulation,Hot Packs, Infrared Therapy,Iontophoresis ,Ultrasound Next Visit Focus/Plan Next Note Type Treatment Note Next Visit Plan review exercises as needed work on overhead mobility Plan of Care Dates Plan of Care Start Date 01/19/20 Plan of Care End Date 03/20/20 Electronically Signed by: Sarah Park, PT 01/19/20 1040 Please Sign and Return: I have reviewed this Plan of Care and certify that the skilled therapy services above are required to meet the patient?s needs. Physician Signature Date Printed Name and Credentials Clinical Instructor Signature Printed Name and Credentials
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
== END 2020-03-03 11:50 | disposition home or self-care (01) ==
LOC: PHYS 09:00
PROVIDERS: PCP Family Medicine; Referring Provider Family Medicine; Visit Provider Family Medicine
DX: M25.511 Pain in right shoulder (principal); R53.1 Weakness; M25.612 Stiffness of left shoulder, not elsewhere classified; M25.611 Stiffness of right shoulder, not elsewhere classified
CPT/HCPCS: 97010; 97110; 97112; 97140; 97162; 97530

== ENCOUNTER → 2020-10-18 12:24 | Outpatient (CLI) | payer MEDICARE, OTHER, SELFPAY ==
--- NOTE | 2020-10-18 | DI.RAD.S_ITS ---
PROCEDURE: XR FINGER RT MIN 2V INDICATIONS: RIGHT THUMB PAIN TECHNIQUE: AP hand, 2 views of the 1st finger(s) acquired. COMPARISON: None. FINDINGS: Bones: No fractures or dislocations. No suspicious bony lesions. Soft tissues: No suspicious soft tissue calcifications. 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 Dictated by: Kanu Schneider M.D. on 10/18/2020 at 12:57 Approved by: Kanu Schneider M.D. on 10/18/2020 at 12:59
== END ==
PROVIDERS: PCP Family Medicine; Referring Provider Family Medicine; Visit Provider Family Medicine
DX: M79.644 Pain in right finger(s) (principal); M19.041 Primary osteoarthritis, right hand
CPT/HCPCS: 73140

== ENCOUNTER 2020-12-07 14:15 | Outpatient (RCR) | payer MEDICARE, OTHER, SELFPAY ==
--- NOTE | 2020-11-13 16:59 | PT.OIE ---
Current Diagnoses Muscle weakness (generalized) (11/13/20) Pain in right finger(s) (11/13/20) Past Medical History (Last Reviewed 07/28/19 @ 17:41 by ANGE Stevens) No significant medical problems Visit Care Team Role Provider Type Jaron Varela MD Attending Provider Physician Primary Care Provider Referring Provider Specialty: [facility] Address: [facility] [place] [facility] [place], [facility] Email: [email or web address] [facility] Initial Evaluation PT-OP-A Visit Information Start: 11/10/20 17:23 Freq: Status: Active Protocol: Document 11/13/20 08:11 [facility] (Rec: 11/13/20 09:05 [facility] [id number]) Out-Patient Physical Therapy Visit Information Visit Information Visit Type Initial Evaluation Visit Start Time 08:15 Visit Stop Time 09:04 Total Visit Minutes 40 Visit Number 1 Evaluation Information Evaluation Date 11/13/20 Precautions Precautions Polymyalgia Rheumatica PT-OP-B Current Condition Start: 11/10/20 17:23 Freq: Status: Active Protocol: Document 11/13/20 08:11 [facility] (Rec: 11/13/20 09:05 [facility] [id number]) Current Condition History of Current Condition Onset Date 3 weeks ago. Current Complaints R thumb pain at MCP jt. History of Current Condition PT is R handed. Insidious onset of R thumb pushing pain noticed when pushing on gear shift of bike. Tried Acetaminophen a few days and found it helpful. No longer taking Acetaminophen. States he has been riding more and it has been helping. Mildly irritating with: zippers ( requiring a twisting motion), pushing mop on floor, mildly opening of jars. Plays guitar but hasn't since pre- pandemic times, hoping to begin. 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 Treatment Goals Patient/Caregiver Goals Pt goal with therapy: no pain with floor washing, zipping, texting, shaking hands & gear shifting on bicycle. Prior Functional Status Baseline Function- ADL's Independent Baseline Function- Mobility Independent Baseline Function- Recreation/Hobbies Bike rode every other day on streets. Current Functional Impairments (Reported) Functional Limitations- ADL's Zipping up zippers, mopping floors, txting. Functional Limitations- Recreation/ Pain with bicycle riding. Hobbies Personal Factors Other Personal Factors That May Effect Polymyalgia Rheumatica ( Therapy/Recovery currently affects R shoulder). PT-OP-C Subjective Start: 11/10/20 17:23 Freq: Status: Active Protocol: Document 11/13/20 08:11 [facility] (Rec: 11/13/20 09:05 [facility] [id number]) Patient Questionnaires Quick Dash- Upper Extremity Quick Dash UE Score 15.9 Quick Dash UE Impairment 1 to 19% Impaired (Score 1-19) OP-PT Pain Assessment Location R thumb MCP jt Pain Location Details Around R MCP jt of thumb Intensity 6 Scale Used Numeric (0 - 10) Description Aching,Throbbing Description- Other 3-6/10, radiates up/down thumb opening hand, feels restrictive Frequency Constant Pain Aggravating Factors Changing Position Pain Alleviating Factors Medication Other Pain Alleviating Factors Rare use of Acetaminophen PT-OP-F Manual Assessment Start: 11/10/20 17:23 Freq: Status: Active Protocol: Document 11/13/20 08:11 [facility] (Rec: 11/13/20 09:05 [facility] [id number]) Manual Assessments Soft Tissue Assessment Soft Tissue Mobility Assessment Tender AP of R MCP joint, AB pollicus longus tendon, [place] , radial side of R wrist: 1st row carpal bones (naviucular & lunate) and ulnar side of flexor tendon (lunate, triquetrium interface). Tender R thumb Abductor longus tendon. Joint Mobility Assessment Joint Mobility Assessment Tender with PA & AP [place], due to pressure applied with testing. Mobility normal R & L wrist. PT-OP-H Neuro Start: 11/10/20 17:23 Freq: Status: Active Protocol: Document 11/13/20 08:11 [facility] (Rec: 11/13/20 09:05 [facility] [id number]) Sensation Evaluation Gross Sensation Gross Sensation WNL PT-OP-J Posture/Palpation/Skin Start: 11/10/20 17:23 Freq: Status: Active Protocol: Document 11/13/20 08:11 [facility] (Rec: 11/13/20 12:06 [facility] [id number]) Palpation Assessment Location R thumb MCP jt Palpation Location MCP jt Dorsal and Volar jt tenderness. Palpation Findings Tenderness Palpation Details No tenderness of lateral sides R thumb CMC jt Palpation Location CMC jt radial side, Abductor longus tendon Palpation Findings Tenderness L thumb CMC jt Palpation Details Normal L thumb MCP jt Palpation Details Normal PT-OP-K Range of Motion Start: 11/10/20 17:23 Freq: Status: Active Protocol: Document 11/13/20 08:11 [facility] (Rec: 11/13/20 09:05 [facility] [id number]) Wrist Goniometric Range of Motion Wrist Right Wrist ROM WFL No Flexion Active (degrees) 58 Extension Active (degrees) 50 Ulnar Deviation Active (degrees) 19 Radial Deviation Active (degrees) 18 Left Wrist ROM WFL Yes Flexion Active (degrees) 61 Extension Active (degrees) 40 Ulnar Deviation Active (degrees) 25 Radial Deviation Active (degrees) 18 Thumb Goniometric Range of Motion Thumb Right Thumb ROM WFL No MCP Flexion Active (degrees) 44 CMC Extension Active (degrees) 32 Comments Pain with opposition at base of 5th digit Left Thumb ROM WFL Yes MCP Flexion Active (degrees) 44 CMC Extension Passive (degrees) 44 PT-OP-L Special Tests Start: 11/10/20 17:23 Freq: Status: Active Protocol: Document 11/13/20 08:11 [facility] (Rec: 11/13/20 12:06 [facility] [id number]) Special Tests Wrist/Hand Special Tests CMC Grind Test Results R CMC jt: Negative Comments No pain with compression Ivelisse's Test Results R wrist: Negative Comments No pain with overpressure PT-OP-M Strength Start: 11/10/20 17:23 Freq: Status: Active Protocol: Document 11/13/20 08:11 [facility] (Rec: 11/13/20 09:05 [facility] [id number]) Finger/Thumb Strength Finger Manual Muscle Testing Right Thumb Flexion (fingers C8) 4 Good Extension (thumb C8) 4 Good Adduction 5 Normal Abduction (fingers T1) 5 Normal Comments Pain at MCP, CMC @ at wrist with MMT. Left Thumb Comments Generally 5/5 Hand Chief Talent Officer/Pinch Strength Hand Dominance Hand Dominance Right Hand Strength Right Comments K, 25, 25 (avg is 24. 6kg) Avg for 70-74 yo's: 34.2 R. Left Comments K, 28, 21 (avg is 16.7 kg) Avg for 70-74 yo's: 29.3 L. PT-OP-Q Treatments Start: 11/10/20 17:23 Freq: Status: Active Protocol: Document 11/13/20 08:11 [facility] (Rec: 11/13/20 09:05 [facility] [id number]) Self-Care/Home Management Treatment Education Patient Education Home Exercise Program Other Education Discussed results of evaluation, goals, and plan of care (POC). Pt agreeable to goals and POC. Discussed increase in use of cryotherapy after activities. Activities Self-Care/Home Management Activities I/S pt in Active wrist flex/ ext stretch for HEP. I/S pt in increase use of cryotherapy for pain management. PT-OP-T Assessment and Plan Start: 11/10/20 17:23 Freq: Status: Active Protocol: Document 11/13/20 08:11 [facility] (Rec: 11/13/20 09:05 [facility] [id number]) Physical Therapy Assessment Rehab Potential Rehabilitation Potential Good Evaluation Complexity Number of Personal Factors/Comorbidities 1-2 Number of Body Systems Impaired 4 or More Clinical Presentation at Evaluation Evolving Impairments Impairments Activity Tolerance,Pain,ROM, Soft Tissue Mobility,Strength Goals Four Impairment Decreased R skip pitman strength (24. 6 kg, avg for 7-0-74 yo's is 34.2 kg) Impairment R hand skip pitman strength (kg): 24 , 25, 25 (avg is 24.6 kg) Avg norm for 70-74 yo's: 34.2 R. Pain with shaking hands & gear shifting on bicycle. Short Term Goal (STG) Improve painfree skip pitman strength with pt able to shake hands without pain. STG Duration 12/08/20 Snf Goal (LTG) Improve painfree skip pitman strength with pt able to shift gears on his bicycle without pain. LTG Duration 01/12/21 Three Impairment R thumb pain rated 3-6/10 Impairment Pain with zipping, texting Short Term Goal (STG) Pain no greater than 2/10 with zipping zipper and texting. STG Duration 12/08/20 Snf Goal (LTG) Decrease pain to no greater than 1/10 with zipping zipper and texting. LTG Duration 01/12/21 Two Impairment Decreased R wrist AROM due to pain Impairment Pain with floor washing Short Term Goal (STG) Pt independent with R wrist AROM HEP. STG Duration 11/17/20 [employer]ist[employer] Goal (LTG) No pain with floor washing. LTG Duration 01/12/21 One Impairment Pt lacks appropriate self care HEP Short Term Goal (STG) Pt will be educated in self care edema and pain management home program. STG Duration 11/17/20 [employer]ist[employer] Goal (LTG) Pt will be independent with a self care HEP. LTG Duration 01/12/21 Assessment Summary Assessment The pt appears to have a mild strain of his R thumb extensor brevis and abductor longus tendons with mild joint instability at the R hand CMC and MCP jt and tightness at the MCP jt. He demonstrates decreased active R wrist flex, ext, UD due to R MCP jt pain. R thumb MCP jt ROM is WNL. CMC jt appears normal. He has tenderness of the R thumb extensor tendon and Abductor longus tendon, but demonstrates a negative DeQuervains tenosynovitis test . The pt will benefit from skilled physical therapy to achieve the above stated goals . Physical Therapy Plan Frequency and Duration Frequency of Treatment 1x/Week Plan of Care Start Date 11/13/20 Plan of Care End Date 01/12/21 Therapeutic Interventions Therapeutic Interventions Home Exercise Program,Joint Mobilizations,Manual Therapy, Patient/Caregiver Education, Self-Care/Home Management,Soft Tissue Mobilization,Taping, Therapeutic Activities, Therapeutic Exercises Modalities Cold Pack/Ice Massage,Paraffin Bath,Ultrasound Next Visit Focus/Plan Next Note Type Treatment Note Next Visit Plan Assess thumb AROM and PROM. Assess carpal bone mobility. Educate pt in RICE & contrast baths for edema/pain management. Laser treatment to R thumb AB longus and extensor tendon, f/b stretch ROM and strengthening of R hand and general UE (UBE). End ice if pt not going straight home.
--- NOTE | 2020-11-13 17:00 | PT.OPPOC ---
Addendum entered and electronically signed by Elle Mayers, PT 11/13/20 17:00: Sending POC Original Note: Physical, Occupational & Speech Therapy At [facility] Current Diagnoses Muscle weakness (generalized) (11/13/20) Pain in right finger(s) (11/13/20) Visit Care Team Role Provider Type Jaron Varela MD Attending Provider Physician Primary Care Provider Referring Provider Specialty: [facility] Address: [facility] [place], [address] Email: Plan Of Care PT-OP-T Assessment and Plan Start: 11/10/20 17:23 Freq: Status: Active Protocol: Document 11/13/20 08:11 [facility] (Rec: 11/13/20 09:05 [facility] [id number]) Physical Therapy Assessment Rehab Potential Rehabilitation Potential Good Evaluation Complexity Number of Personal Factors/Comorbidities 1-2 Number of Body Systems Impaired 4 or More Clinical Presentation at Evaluation Evolving Impairments Impairments Activity Tolerance,Pain,ROM, Soft Tissue Mobility,Strength Goals Four Impairment Decreased R cooker operator strength (24. 6 kg, avg for 7-0-74 yo's is 34.2 kg) Impairment R hand cooker operator strength (kg): 24 , 25, 25 (avg is 24.6 kg) Avg norm for 70-74 yo's: 34.2 R. Pain with shaking hands & gear shifting on bicycle. Short Term Goal (STG) Improve painfree cooker operator strength with pt able to shake hands without pain. STG Duration 12/08/20 It Operations Analyst Goal (LTG) Improve painfree cooker operator strength with pt able to shift gears on his bicycle without pain. LTG Duration 01/12/21 Three Impairment R thumb pain rated 3-6/10 Impairment Pain with zipping, texting Short Term Goal (STG) Pain no greater than 2/10 with zipping zipper and texting. STG Duration 12/08/20 It Operations Analyst Goal (LTG) Decrease pain to no greater than 1/10 with zipping zipper and texting. LTG Duration 01/12/21 Two Impairment Decreased R wrist AROM due to pain Impairment Pain with floor washing Short Term Goal (STG) Pt independent with R wrist AROM HEP. STG Duration 11/17/20 It Operations Analyst Goal (LTG) No pain with floor washing. LTG Duration 01/12/21 One Impairment Pt lacks appropriate self care HEP Short Term Goal (STG) Pt will be educated in self care edema and pain management home program. STG Duration 11/17/20 Custodial Goal (LTG) Pt will be independent with a self care HEP. LTG Duration 01/12/21 Assessment Summary Assessment The pt appears to have a mild strain of his R thumb extensor brevis and abductor longus tendons with mild joint instability at the R hand CMC and MCP jt and tightness at the MCP jt. He demonstrates decreased active R wrist flex, ext, UD due to R MCP jt pain. R thumb MCP jt ROM is WNL. CMC jt appears normal. He has tenderness of the R thumb extensor tendon and Abductor longus tendon, but demonstrates a negative DeQuervains tenosynovitis test . The pt will benefit from skilled physical therapy to achieve the above stated goals . Physical Therapy Plan Frequency and Duration Frequency of Treatment 1x/Week Plan of Care Start Date 11/13/20 Plan of Care End Date 01/12/21 Therapeutic Interventions Therapeutic Interventions Home Exercise Program,Joint Mobilizations,Manual Therapy, Patient/Caregiver Education, Self-Care/Home Management,Soft Tissue Mobilization,Taping, Therapeutic Activities, Therapeutic Exercises Modalities Cold Pack/Ice Massage,Paraffin Bath,Ultrasound Next Visit Focus/Plan Next Note Type Treatment Note Next Visit Plan Assess thumb AROM and PROM. Assess carpal bone mobility. Educate pt in RICE & contrast baths for edema/pain management. Laser treatment to R thumb AB longus and extensor tendon, f/b stretch ROM and strengthening of R hand and general UE (UBE). End ice if pt not going straight home. Plan of Care Dates Plan of Care Start Date 11/13/20 Plan of Care End Date 01/12/21 Electronically Signed by: Elle Mayers, PT 11/13/20 1700 Please Sign and Return: I have reviewed this Plan of Care and certify that the skilled therapy services above are required to meet the patient?s needs. Physician Signature Date Printed Name and Credentials Clinical Instructor Signature Printed Name and Credentials
--- NOTE | 2020-11-17 12:32 | PT.OTN ---
Current Diagnoses Muscle weakness (generalized) (11/17/20) Pain in right finger(s) (11/17/20) Physical Therapy Treatment Note PT-OP-A Visit Information Start: 11/10/20 17:23 Freq: Status: Active Protocol: Document 11/17/20 10:44 LRN (Rec: 11/17/20 12:31 LRN [id number]) Out-Patient Physical Therapy Visit Information Visit Information Visit Type Treatment Note Visit Start Time 10:44 Visit Stop Time 11:24 Total Visit Minutes 40 Visit Number 2 Evaluation Information Evaluation Date 11/13/20 Precautions Precautions Polymyalgia Rheumatica PT-OP-B Current Condition Start: 11/10/20 17:23 Freq: Status: Active Protocol: Document 11/13/20 08:11 LRN (Rec: 11/13/20 09:05 LRN [id number]) Current Condition History of Current Condition Onset Date 3 weeks ago. Current Complaints R thumb pain at MCP jt. History of Current Condition PT is R handed. Insidious onset of R thumb pushing pain noticed when pushing on gear shift of bike. Tried Acetaminophen a few days and found it helpful. No longer taking Acetaminophen. States he has been riding more and it has been helping. Mildly irritating with: zippers ( requiring a twisting motion), pushing mop on floor, mildly opening of jars. Plays guitar but hasn't since pre- pandemic times, hoping to begin. 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 Treatment Goals Patient/Caregiver Goals Pt goal with therapy: no pain with floor washing, zipping, texting, shaking hands & gear shifting on bicycle. Prior Functional Status Baseline Function- ADL's Independent Baseline Function- Mobility Independent Baseline Function- Recreation/Hobbies Bike rode every other day on streets. Current Functional Impairments (Reported) Functional Limitations- ADL's Zipping up zippers, mopping floors, txting. Functional Limitations- Recreation/ Pain with bicycle riding. Hobbies Personal Factors Other Personal Factors That May Effect Polymyalgia Rheumatica ( Therapy/Recovery currently affects R shoulder). PT-OP-C Subjective Start: 11/10/20 17:23 Freq: Status: Active Protocol: Document 11/17/20 10:44 LRN (Rec: 11/17/20 12:31 LRN [id number]) OP-PT Subjective Patient Comments Patient Comments States he can hold his toothbrush with the R hand with not as much pain as he thought he'd have. Pain 4.5-5 to start after therapy3-10. Pain at R CMC to MCP jt. PT-OP-F Manual Assessment Start: 11/10/20 17:23 Freq: Status: Active Protocol: Document 11/13/20 08:11 LRN (Rec: 11/13/20 09:05 LRN [id number]) Manual Assessments Soft Tissue Assessment Soft Tissue Mobility Assessment Tender AP of R MCP joint, AB pollicus longus tendon, [place] , radial side of R wrist: 1st row carpal bones (naviucular & lunate) and ulnar side of flexor tendon (lunate, triquetrium interface). Tender R thumb Abductor longus tendon. Joint Mobility Assessment Joint Mobility Assessment Tender with PA & AP [place], due to pressure applied with testing. Mobility normal R & L wrist. PT-OP-H Neuro Start: 11/10/20 17:23 Freq: Status: Active Protocol: Document 11/13/20 08:11 LRN (Rec: 11/13/20 09:05 LRN [id number]) Sensation Evaluation Gross Sensation Gross Sensation WNL PT-OP-J Posture/Palpation/Skin Start: 11/10/20 17:23 Freq: Status: Active Protocol: Document 11/13/20 08:11 LRN (Rec: 11/13/20 12:06 LRN [id number]) Palpation Assessment Location R thumb MCP jt Palpation Location MCP jt Dorsal and Volar jt tenderness. Palpation Findings Tenderness Palpation Details No tenderness of lateral sides R thumb CMC jt Palpation Location CMC jt radial side, Abductor longus tendon Palpation Findings Tenderness L thumb CMC jt Palpation Details Normal L thumb MCP jt Palpation Details Normal PT-OP-K Range of Motion Start: 11/10/20 17:23 Freq: Status: Active Protocol: Document 11/17/20 10:44 LRN (Rec: 11/17/20 12:31 LRN [id number]) Thumb Goniometric Range of Motion Thumb Right Thumb ROM WFL No MCP Flexion Active (degrees) 50 IP Flexion Active (degrees) 56 CMC Flexion Active (degrees) 14 CMC Flexion Passive (degrees) 20 CMC Extension Active (degrees) 12 CMC Extension Passive (degrees) 20 Comments 5th digit opposition: lacks 1/ 2 cm Left Thumb ROM WFL Yes MCP Flexion Active (degrees) 42 IP Extension Active (degrees) 56 CMC Flexion Active (degrees) 10 CMC Flexion Passive (degrees) 10 CMC Extension Active (degrees) 24 CMC Extension Passive (degrees) 36 Comments Full range with opposition with all fingers. PT-OP-L Special Tests Start: 11/10/20 17:23 Freq: Status: Active Protocol: Document 11/13/20 08:11 LRN (Rec: 11/13/20 12:06 LRN [id number]) Special Tests Wrist/Hand Special Tests CMC Grind Test Results R CMC jt: Negative Comments No pain with compression Ivelisse's Test Results R wrist: Negative Comments No pain with overpressure PT-OP-M Strength Start: 11/10/20 17:23 Freq: Status: Active Protocol: Document 11/13/20 08:11 LRN (Rec: 11/13/20 09:05 LRN [id number]) Finger/Thumb Strength Finger Manual Muscle Testing Right Thumb Flexion (fingers C8) 4 Good Extension (thumb C8) 4 Good Adduction 5 Normal Abduction (fingers T1) 5 Normal Comments Pain at MCP, CMC @ at wrist with MMT. Left Thumb Comments Generally 5/5 Hand Regional Service Manager/Pinch Strength Hand Dominance Hand Dominance Right Hand Strength Right Comments K, 25, 25 (avg is 24. 6kg) Avg for 70-74 yo's: 34.2 R. Left Comments K, 28, 21 (avg is 16.7 kg) Avg for 70-74 yo's: 29.3 L. PT-OP-Q Treatments Start: 11/10/20 17:23 Freq: Status: Active Protocol: Document 11/17/20 10:44 LRN (Rec: 11/17/20 12:31 LRN [id number]) Therapeutic Exercises Sitting Exercises CMC flex/ext stretch Sitting Exercise Name Passive Side right Reps/Minutes 6' MCP flex/ext stretch Sitting Exercise Name Active Side right Reps/Minutes 6' IP flex/ext stretch Side right Reps/Minutes 6' Thumb Ext stretch Sitting Exercise Name Passive Side right Reps/Minutes 3' Wrist flexion stretch Sitting Exercise Name Passive, self assisted Side right Reps/Minutes 10 SH x 10 Manual Therapy Treatment Soft Tissue Mobilization R Thenar eminence Body Location R Thenar [place], check of Thumb ext & AB Mobilization Type Strumming Intensity/Depth Moderate Body Position Sitting Self-Care/Home Management Treatment Education Patient Education Home Exercise Program Other Education Discussed edema management of R hand for ice and elevation. Activities Self-Care/Home Management Activities I/S pt in HEP: Edema management - RICE with handout issued. Strengthening: R thumb AD, flex and opposition. Yellow TPutty issued. PT-OP-R Modalities Start: 11/10/20 17:23 Freq: Status: Active Protocol: Document 11/17/20 10:44 LRN (Rec: 11/17/20 12:31 LRN [id number]) Other Unlisted Modality Treatment Laser Name of Modality Laser Duration (Minutes) 5 Body Position Sitting Parameters Tendon/lig, chronic high pulse . Comments Extra time taken for set up and explanation of goggles. Treatment time: 1'4 at MCP and CMC jt. PT-OP-T Assessment and Plan Start: 11/10/20 17:23 Freq: Status: Active Protocol: Document 11/17/20 10:44 LRN (Rec: 11/17/20 12:31 LRN [id number]) Physical Therapy Assessment Goals Four Impairment Decreased R diesel pile hammer operator strength (24. 6 kg, avg for 7-0-74 yo's is 34.2 kg) Impairment R hand diesel pile hammer operator strength (kg): 24 , 25, 25 (avg is 24.6 kg) Avg norm for 70-74 yo's: 34.2 R. Pain with shaking hands & gear shifting on bicycle. Short Term Goal (STG) Improve painfree diesel pile hammer operator strength with pt able to shake hands without pain. STG Duration 12/08/20 Rim Roller Operator Goal (LTG) Improve painfree diesel pile hammer operator strength with pt able to shift gears on his bicycle without pain. LTG Duration 01/12/21 Three Impairment R thumb pain rated 3-6/10 Impairment Pain with zipping, texting Short Term Goal (STG) Pain no greater than 2/10 with zipping zipper and texting. STG Duration 12/08/20 Jail Goal (LTG) Decrease pain to no greater than 1/10 with zipping zipper and texting. LTG Duration 01/12/21 Two Impairment Decreased R wrist AROM due to pain Impairment Pain with floor washing Short Term Goal (STG) Pt independent with R wrist AROM HEP. STG Duration 11/17/20 Rim Roller Operator Goal (LTG) No pain with floor washing. LTG Duration 01/12/21 One Impairment Pt lacks appropriate self care HEP Short Term Goal (STG) Pt will be educated in self care edema and pain management home program. (11/17/20: Education in RICE) STG Duration 11/17/20 (11/17/20: Progressed ) Jail Goal (LTG) Pt will be independent with a self care HEP. (11/08/11: Verbal I/S for thumb strengthening flex, AB, Opposition, wrist flex/elbow straight stretch) LTG Duration 01/12/21 (11/17/20: Progressed) Progress Towards Goals Progress Comments Progressed HEP and education in edema management. Assessment Summary Assessment Pt sore R hand CMC>MCP jt after treatment of ROM and strengthening. Pt MCP joint mobility restriction limits opposition. Physical Therapy Plan Frequency and Duration Frequency of Treatment 1x/Week Plan of Care Start Date 11/13/20 Plan of Care End Date 01/12/21 Next Visit Focus/Plan Next Note Type Treatment Note Next Visit Plan Assess carpal bone mobility. Educate pt in contrast baths for edema/pain management. Assess response to Laser treatment to R thumb AB longus and extensor tendon. Stretch ROM and strengthening of R hand and general UE (UBE) . End ice if pt not going straight home.
--- NOTE | 2020-11-20 16:39 | PT.OTN ---
Current Diagnoses Muscle weakness (generalized) (11/20/20) Pain in right finger(s) (11/20/20) Physical Therapy Treatment Note PT-OP-A Visit Information Start: 11/10/20 17:23 Freq: Status: Active Protocol: Document 11/20/20 14:27 LRN (Rec: 11/20/20 16:36 LRN [id number]) Out-Patient Physical Therapy Visit Information Visit Information Visit Type Treatment Note Visit Start Time 14:27 Visit Stop Time 15:14 Total Visit Minutes 46 Visit Number 3 PT-OP-B Current Condition Start: 11/10/20 17:23 Freq: Status: Active Protocol: Document 11/13/20 08:11 LRN (Rec: 11/13/20 09:05 LRN [id number]) Current Condition History of Current Condition Onset Date 3 weeks ago. Current Complaints R thumb pain at MCP jt. History of Current Condition PT is R handed. Insidious onset of R thumb pushing pain noticed when pushing on gear shift of bike. Tried Acetaminophen a few days and found it helpful. No longer taking Acetaminophen. States he has been riding more and it has been helping. Mildly irritating with: zippers ( requiring a twisting motion), pushing mop on floor, mildly opening of jars. Plays guitar but hasn't since pre- pandemic times, hoping to begin. 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 Treatment Goals Patient/Caregiver Goals Pt goal with therapy: no pain with floor washing, zipping, texting, shaking hands & gear shifting on bicycle. Prior Functional Status Baseline Function- ADL's Independent Baseline Function- Mobility Independent Baseline Function- Recreation/Hobbies Bike rode every other day on streets. Current Functional Impairments (Reported) Functional Limitations- ADL's Zipping up zippers, mopping floors, txting. Functional Limitations- Recreation/ Pain with bicycle riding. Hobbies Personal Factors Other Personal Factors That May Effect Polymyalgia Rheumatica ( Therapy/Recovery currently affects R shoulder). PT-OP-C Subjective Start: 11/10/20 17:23 Freq: Status: Active Protocol: Document 11/20/20 14:27 LRN (Rec: 11/20/20 16:36 LRN [id number]) OP-PT Subjective Patient Comments Patient Comments Hand is better. Can do opposition with thumb and little finger without pain. PT-OP-F Manual Assessment Start: 11/10/20 17:23 Freq: Status: Active Protocol: Document 11/13/20 08:11 LRN (Rec: 11/13/20 09:05 LRN [id number]) Manual Assessments Soft Tissue Assessment Soft Tissue Mobility Assessment Tender AP of R MCP joint, AB pollicus longus tendon, [place] , radial side of R wrist: 1st row carpal bones (naviucular & lunate) and ulnar side of flexor tendon (lunate, triquetrium interface). Tender R thumb Abductor longus tendon. Joint Mobility Assessment Joint Mobility Assessment Tender with PA & AP [place], due to pressure applied with testing. Mobility normal R & L wrist. PT-OP-H Neuro Start: 11/10/20 17:23 Freq: Status: Active Protocol: Document 11/13/20 08:11 LRN (Rec: 11/13/20 09:05 LRN [id number]) Sensation Evaluation Gross Sensation Gross Sensation WNL PT-OP-J Posture/Palpation/Skin Start: 11/10/20 17:23 Freq: Status: Active Protocol: Document 11/13/20 08:11 LRN (Rec: 11/13/20 12:06 LRN [id number]) Palpation Assessment Location R thumb MCP jt Palpation Location MCP jt Dorsal and Volar jt tenderness. Palpation Findings Tenderness Palpation Details No tenderness of lateral sides R thumb CMC jt Palpation Location CMC jt radial side, Abductor longus tendon Palpation Findings Tenderness L thumb CMC jt Palpation Details Normal L thumb MCP jt Palpation Details Normal PT-OP-K Range of Motion Start: 11/10/20 17:23 Freq: Status: Active Protocol: Document 11/17/20 10:44 LRN (Rec: 11/17/20 12:31 LRN [id number]) Thumb Goniometric Range of Motion Thumb Right Thumb ROM WFL No MCP Flexion Active (degrees) 50 IP Flexion Active (degrees) 56 CMC Flexion Active (degrees) 14 CMC Flexion Passive (degrees) 20 CMC Extension Active (degrees) 12 CMC Extension Passive (degrees) 20 Comments 5th digit opposition: lacks 1/ 2 cm Left Thumb ROM WFL Yes MCP Flexion Active (degrees) 42 IP Extension Active (degrees) 56 CMC Flexion Active (degrees) 10 CMC Flexion Passive (degrees) 10 CMC Extension Active (degrees) 24 CMC Extension Passive (degrees) 36 Comments Full range with opposition with all fingers. PT-OP-L Special Tests Start: 11/10/20 17:23 Freq: Status: Active Protocol: Document 11/13/20 08:11 LRN (Rec: 11/13/20 12:06 LRN [id number]) Special Tests Wrist/Hand Special Tests CMC Grind Test Results R CMC jt: Negative Comments No pain with compression Ivelisse's Test Results R wrist: Negative Comments No pain with overpressure PT-OP-M Strength Start: 11/10/20 17:23 Freq: Status: Active Protocol: Document 11/13/20 08:11 LRN (Rec: 11/13/20 09:05 LRN [id number]) Finger/Thumb Strength Finger Manual Muscle Testing Right Thumb Flexion (fingers C8) 4 Good Extension (thumb C8) 4 Good Adduction 5 Normal Abduction (fingers T1) 5 Normal Comments Pain at MCP, CMC @ at wrist with MMT. Left Thumb Comments Generally 5/5 Hand Front Desk Assistant/Pinch Strength Hand Dominance Hand Dominance Right Hand Strength Right Comments K, 25, 25 (avg is 24. 6kg) Avg for 70-74 yo's: 34.2 R. Left Comments K, 28, 21 (avg is 16.7 kg) Avg for 70-74 yo's: 29.3 L. PT-OP-Q Treatments Start: 11/10/20 17:23 Freq: Status: Active Protocol: Document 11/20/20 14:27 LRN (Rec: 11/20/20 16:36 LRN [id number]) Cardio Equipment Upper Body Ergometer (UBE) Duration (Minutes) 5 RPM 70 Height 3 Other 1' fwd/bwd with thumb tucked. Therapeutic Exercises Sitting Exercises R CMC AB/AD stretch Sitting Exercise Name Passive stretch Side right Reps/Minutes 4' R CMC AB/AD Sitting Exercise Name Active AB/AD Side right Reps/Minutes 15x 2 Comments Stretch after each set CMC flex/ext ex Sitting Exercise Name Active Flex/ext Side right Reps/Minutes 15x 2 Comments Stretch after each set CMC flex/ext stretch Sitting Exercise Name Flex > Ext stretch Side right Reps/Minutes 4' MCP flex/ext stretch Sitting Exercise Name Passive Opposition stretch Side right Reps/Minutes 4' IP flex/ext stretch Sitting Exercise Name Flex > ext stretch Side right Reps/Minutes 4' Thumb Ext stretch Sitting Exercise Name Passive Side right Reps/Minutes 3' Wrist flexion stretch Sitting Exercise Name Passive, self assisted Side right Reps/Minutes 10 SH x 10 Self-Care/Home Management Treatment Education Other Education Reviewed pt's theraballs and discussed uses, but recommended the pt use the therapy putty to get full ROM with strengthening. Activities Self-Care/Home Management Activities Issued and reviewed HEP: R thumb stretching into: Ext, AB, Opposition/Flex, Wrist flexion, and thumb extensor; Strengthening: R Thumb Flex, ADD, Opposition. PT-OP-R Modalities Start: 11/10/20 17:23 Freq: Status: Active Protocol: Document 11/20/20 14:27 LRN (Rec: 11/20/20 16:36 LRN [id number]) Other Unlisted Modality Treatment Laser Name of Modality Laser Duration (Minutes) 2 Body Position Sitting Parameters Tendon/lig, chronic high pulse . Comments Extra time taken for set up and explanation of goggles. Treatment time: 1'4 at MCP and CMC jt. 60.3 J's PT-OP-T Assessment and Plan Start: 11/10/20 17:23 Freq: Status: Active Protocol: Document 11/20/20 14:27 LRN (Rec: 11/20/20 16:36 LRN [id number]) Physical Therapy Assessment Goals Four Impairment Decreased R mutual fund sales agent strength (24. 6 kg, avg for 7-0-74 yo's is 34.2 kg) Impairment R hand mutual fund sales agent strength (kg): 24 , 25, 25 (avg is 24.6 kg) Avg norm for 70-74 yo's: 34.2 R. Pain with shaking hands & gear shifting on bicycle. Short Term Goal (STG) Improve painfree mutual fund sales agent strength with pt able to shake hands without pain. STG Duration 12/08/20 National Sales Goal (LTG) Improve painfree mutual fund sales agent strength with pt able to shift gears on his bicycle without pain. LTG Duration 01/12/21 Three Impairment R thumb pain rated 3-6/10 Impairment Pain with zipping, texting Short Term Goal (STG) Pain no greater than 2/10 with zipping zipper and texting. STG Duration 12/08/20 National Sales Goal (LTG) Decrease pain to no greater than 1/10 with zipping zipper and texting. LTG Duration 01/12/21 Two Impairment Decreased R wrist AROM due to pain Impairment Pain with floor washing Short Term Goal (STG) Pt independent with R wrist AROM HEP. (11/20/20: Wrist flex stretch issued) STG Duration 11/17/20 (11/20/20: Progressed) Half-Way Goal (LTG) No pain with floor washing. LTG Duration 01/12/21 One Impairment Pt lacks appropriate self care HEP Short Term Goal (STG) Pt will be educated in self care edema and pain management home program. (11/17/20: Education in RICE) STG Duration 11/17/20 (11/17/20: Progressed ) Half-Way Goal (LTG) Pt will be independent with a self care HEP. (11/21/11: I/S for thumb strengthening flex, AB, Opposition, wrist flex stretch with elbow straight stretch; and thumb strengthening into flex, AD, Opposition) LTG Duration 01/12/21 (11/20/20: Progressed ) Progress Towards Goals Progress Comments Progressed HEP. Assessment Summary Assessment Pt has greater mobility of carpal bones on R hand than L, except at [place] and [place]. He has no tenderness of R wrist volar and dorsal side. His pain is primarily at R thumb CMC joint. Pt appears to have had a + response to Laser treatment with no pain complaints at R thumb AB longus and extensor tendon, only at R thumb CMC jt. Physical Therapy Plan Frequency and Duration Frequency of Treatment 1x/Week Plan of Care Start Date 11/13/20 Plan of Care End Date 01/12/21 Next Visit Focus/Plan Next Note Type Treatment Note Next Visit Plan Educate pt in contrast baths for edema/pain management. Assess response to Laser treatment to R thumb CMC jt. Add wrist strengthening ex. Stretch ROM and strengthening of R hand and general UE (UBE) , try normal mutual fund sales agent if pt pain is down. Progress in 1-2 visits pinch strengthening for improving function of zipping a zipper. End ice if pt not going straight home.
--- NOTE | 2020-11-24 11:40 | PT.OTN ---
Current Diagnoses Muscle weakness (generalized) (11/24/20) Pain in right finger(s) (11/24/20) Physical Therapy Treatment Note PT-OP-A Visit Information Start: 11/10/20 17:23 Freq: Status: Active Protocol: Document 11/24/20 10:45 LRN (Rec: 11/24/20 11:40 LRN [id number]) Out-Patient Physical Therapy Visit Information Visit Information Visit Type Treatment Note Visit Start Time 10:45 Visit Stop Time 11:28 Total Visit Minutes 43 Visit Number 4 PT-OP-B Current Condition Start: 11/10/20 17:23 Freq: Status: Active Protocol: Document 11/13/20 08:11 LRN (Rec: 11/13/20 09:05 LRN [id number]) Current Condition History of Current Condition Onset Date 3 weeks ago. Current Complaints R thumb pain at MCP jt. History of Current Condition PT is R handed. Insidious onset of R thumb pushing pain noticed when pushing on gear shift of bike. Tried Acetaminophen a few days and found it helpful. No longer taking Acetaminophen. States he has been riding more and it has been helping. Mildly irritating with: zippers ( requiring a twisting motion), pushing mop on floor, mildly opening of jars. Plays guitar but hasn't since pre- pandemic times, hoping to begin. 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 Treatment Goals Patient/Caregiver Goals Pt goal with therapy: no pain with floor washing, zipping, texting, shaking hands & gear shifting on bicycle. Prior Functional Status Baseline Function- ADL's Independent Baseline Function- Mobility Independent Baseline Function- Recreation/Hobbies Bike rode every other day on streets. Current Functional Impairments (Reported) Functional Limitations- ADL's Zipping up zippers, mopping floors, txting. Functional Limitations- Recreation/ Pain with bicycle riding. Hobbies Personal Factors Other Personal Factors That May Effect Polymyalgia Rheumatica ( Therapy/Recovery currently affects R shoulder). PT-OP-C Subjective Start: 11/10/20 17:23 Freq: Status: Active Protocol: Document 11/24/20 10:45 LRN (Rec: 11/24/20 11:40 LRN [id number]) OP-PT Subjective Patient Comments Patient Comments States he has stiffness and twingy pain at R thumb MCP jt . Active R thumb AB stretch lessens the pain with active opposition. PT-OP-F Manual Assessment Start: 11/10/20 17:23 Freq: Status: Active Protocol: Document 11/13/20 08:11 LRN (Rec: 11/13/20 09:05 LRN [id number]) Manual Assessments Soft Tissue Assessment Soft Tissue Mobility Assessment Tender AP of R MCP joint, AB pollicus longus tendon, [place] , radial side of R wrist: 1st row carpal bones (naviucular & lunate) and ulnar side of flexor tendon (lunate, triquetrium interface). Tender R thumb Abductor longus tendon. Joint Mobility Assessment Joint Mobility Assessment Tender with PA & AP [place], due to pressure applied with testing. Mobility normal R & L wrist. PT-OP-H Neuro Start: 11/10/20 17:23 Freq: Status: Active Protocol: Document 11/13/20 08:11 LRN (Rec: 11/13/20 09:05 LRN [id number]) Sensation Evaluation Gross Sensation Gross Sensation WNL PT-OP-J Posture/Palpation/Skin Start: 11/10/20 17:23 Freq: Status: Active Protocol: Document 11/13/20 08:11 LRN (Rec: 11/13/20 12:06 LRN [id number]) Palpation Assessment Location R thumb MCP jt Palpation Location MCP jt Dorsal and Volar jt tenderness. Palpation Findings Tenderness Palpation Details No tenderness of lateral sides R thumb CMC jt Palpation Location CMC jt radial side, Abductor longus tendon Palpation Findings Tenderness L thumb CMC jt Palpation Details Normal L thumb MCP jt Palpation Details Normal PT-OP-K Range of Motion Start: 11/10/20 17:23 Freq: Status: Active Protocol: Document 11/17/20 10:44 LRN (Rec: 11/17/20 12:31 LRN [id number]) Thumb Goniometric Range of Motion Thumb Right Thumb ROM WFL No MCP Flexion Active (degrees) 50 IP Flexion Active (degrees) 56 CMC Flexion Active (degrees) 14 CMC Flexion Passive (degrees) 20 CMC Extension Active (degrees) 12 CMC Extension Passive (degrees) 20 Comments 5th digit opposition: lacks 1/ 2 cm Left Thumb ROM WFL Yes MCP Flexion Active (degrees) 42 IP Extension Active (degrees) 56 CMC Flexion Active (degrees) 10 CMC Flexion Passive (degrees) 10 CMC Extension Active (degrees) 24 CMC Extension Passive (degrees) 36 Comments Full range with opposition with all fingers. PT-OP-L Special Tests Start: 11/10/20 17:23 Freq: Status: Active Protocol: Document 11/13/20 08:11 LRN (Rec: 11/13/20 12:06 LRN [id number]) Special Tests Wrist/Hand Special Tests CMC Grind Test Results R CMC jt: Negative Comments No pain with compression Ivelisse's Test Results R wrist: Negative Comments No pain with overpressure PT-OP-M Strength Start: 11/10/20 17:23 Freq: Status: Active Protocol: Document 11/13/20 08:11 LRN (Rec: 11/13/20 09:05 LRN [id number]) Finger/Thumb Strength Finger Manual Muscle Testing Right Thumb Flexion (fingers C8) 4 Good Extension (thumb C8) 4 Good Adduction 5 Normal Abduction (fingers T1) 5 Normal Comments Pain at MCP, CMC @ at wrist with MMT. Left Thumb Comments Generally 5/5 Hand Bulk Mail Technician/Pinch Strength Hand Dominance Hand Dominance Right Hand Strength Right Comments K, 25, 25 (avg is 24. 6kg) Avg for 70-74 yo's: 34.2 R. Left Comments K, 28, 21 (avg is 16.7 kg) Avg for 70-74 yo's: 29.3 L. PT-OP-Q Treatments Start: 11/10/20 17:23 Freq: Status: Active Protocol: Document 11/24/20 10:45 LRN (Rec: 11/24/20 11:40 LRN [id number]) Cardio Equipment Upper Body Ergometer (UBE) Duration (Minutes) 6 RPM 70 Height 3 Other 1' fwd/bwd with thumb tucked. Therapeutic Exercises Sitting Exercises Finger Ext Sitting Exercise Name Spread of T-Putty (flat or string-like) Side right Equipment Used Yellow T-Putty, rubber band Reps/Minutes 10x Comments Cuing for R thumb ext at CMC & MCP jt. R CMC AB/AD stretch Sitting Exercise Name Passive stretch Side right Reps/Minutes 4' Comments Modification of HEP to encorporate CMC/MCP flex stretch R CMC AB/AD Sitting Exercise Name Active thumb AB Side right Reps/Minutes 10x 2 Comments Stretch after each set CMC flex/ext ex Sitting Exercise Name Active Flex/ext Side right Reps/Minutes 15x 2 Comments Stretch after each set CMC flex/ext stretch Sitting Exercise Name Thumb Flex > Ext stretch Side right Reps/Minutes 4' MCP flex/ext stretch Sitting Exercise Name Active Ext stretch f/b opposition Comments Phys & v cuing to not overstrain with stretch IP flex/ext stretch Sitting Exercise Name Flex > ext stretch Side right Reps/Minutes 4' Comments Phys cuing for hand positioning for self stretch Thumb Ext stretch Sitting Exercise Name Active thumb ext Side right Reps/Minutes 3' Comments Phys cuing and modification of ex to 5x 10 hold Wrist flexion stretch Sitting Exercise Name Passive, self assisted Side right Reps/Minutes 10 SH x 10 Comments Modification to the way pt was doing to make stretch at wrist extensors Self-Care/Home Management Treatment Education Patient Education Pain Management Other Education Educated pt in contrast bath technique for edema/pain management. Issued handout with I/S to do at least 3 rotations of hot/cold. Activities Self-Care/Home Management Activities I/S pt in general finger extension with rubber band or T-Putty. PT-OP-R Modalities Start: 11/10/20 17:23 Freq: Status: Active Protocol: Document 11/20/20 14:27 LRN (Rec: 11/20/20 16:36 LRN [id number]) Other Unlisted Modality Treatment Laser Name of Modality Laser Duration (Minutes) 2 Body Position Sitting Parameters Tendon/lig, chronic high pulse . Comments Extra time taken for set up and explanation of goggles. Treatment time: 1'4 at MCP and CMC jt. 60.3 J's PT-OP-T Assessment and Plan Start: 11/10/20 17:23 Freq: Status: Active Protocol: Document 11/24/20 10:45 LRN (Rec: 11/24/20 11:40 LRN [id number]) Physical Therapy Assessment Goals Four Impairment Decreased R plastic sheets supervisor strength (24. 6 kg, avg for 7-0-74 yo's is 34.2 kg) Impairment R hand plastic sheets supervisor strength (kg): 24 , 25, 25 (avg is 24.6 kg) Avg norm for 70-74 yo's: 34.2 R. Pain with shaking hands & gear shifting on bicycle. Short Term Goal (STG) Improve painfree plastic sheets supervisor strength with pt able to shake hands without pain. STG Duration 12/08/20 Wealth Management Manager Goal (LTG) Improve painfree plastic sheets supervisor strength with pt able to shift gears on his bicycle without pain. LTG Duration 01/12/21 Three Impairment R thumb pain rated 3-6/10 Impairment Pain with zipping, texting Short Term Goal (STG) Pain no greater than 2/10 with zipping zipper and texting. STG Duration 12/08/20 Wealth Management Manager Goal (LTG) Decrease pain to no greater than 1/10 with zipping zipper and texting. LTG Duration 01/12/21 Two Impairment Decreased R wrist AROM due to pain Impairment Pain with floor washing Short Term Goal (STG) Pt independent with R wrist AROM HEP. (11/20/20: Wrist flex stretch issued) STG Duration 11/17/20 (11/20/20: Progressed) Residential Goal (LTG) No pain with floor washing. LTG Duration 01/12/21 One Impairment Pt lacks appropriate self care HEP Short Term Goal (STG) Pt will be educated in self care edema and pain management home program. (11/17/20: Education in RICE) STG Duration 11/17/20 (11/24/20: MET GOAL) Residential Goal (LTG) Pt will be independent with a self care HEP. (11/21/11: I/S for thumb strengthening flex, AB, Opposition, wrist flex stretch with elbow straight stretch; and thumb strengthening into flex, AD, Opposition) LTG Duration 01/12/21 (11/20/20: Progressed ) Progress Towards Goals Progress Comments Progressed education on edema care. Assessment Summary Assessment Pt had decrease in pain with R thumb opposition with little finger after stretching thumb AD/AB. Good tolerance to finger ext ex. Physical Therapy Plan Frequency and Duration Frequency of Treatment 1x/Week Plan of Care Start Date 11/13/20 Plan of Care End Date 01/12/21 Next Visit Focus/Plan Next Note Type Treatment Note Next Visit Plan Assess response to Laser treatment to R thumb CMC jt. Add wrist strengthening ex. POC: Stretch ROM and strengthening of R hand and UBE - modify plastic sheets supervisor to try normal plastic sheets supervisor if pt pain is down . Try pinch strengthening for improving function of zipping a zipper. End ice if pt not going straight home.
--- NOTE | 2020-12-07 15:07 | PT.OTN ---
Current Diagnoses Muscle weakness (generalized) (12/07/20) Pain in right finger(s) (12/07/20) Physical Therapy Treatment Note PT-OP-A Visit Information Start: 11/10/20 17:23 Freq: Status: Active Protocol: Document 12/07/20 14:17 LRN (Rec: 12/07/20 15:05 LRN [id number]) Out-Patient Physical Therapy Visit Information Visit Information Visit Type Treatment Note Visit Start Time 14:16 Visit Stop Time 14:56 Total Visit Minutes 40 Visit Number 5 Evaluation Information Evaluation Date 11/13/20 Precautions Precautions Polymyalgia Rheumatica PT-OP-B Current Condition Start: 11/10/20 17:23 Freq: Status: Active Protocol: Document 11/13/20 08:11 LRN (Rec: 11/13/20 09:05 LRN [id number]) Current Condition History of Current Condition Onset Date 3 weeks ago. Current Complaints R thumb pain at MCP jt. History of Current Condition PT is R handed. Insidious onset of R thumb pushing pain noticed when pushing on gear shift of bike. Tried Acetaminophen a few days and found it helpful. No longer taking Acetaminophen. States he has been riding more and it has been helping. Mildly irritating with: zippers ( requiring a twisting motion), pushing mop on floor, mildly opening of jars. Plays guitar but hasn't since pre- pandemic times, hoping to begin. 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 Treatment Goals Patient/Caregiver Goals Pt goal with therapy: no pain with floor washing, zipping, texting, shaking hands & gear shifting on bicycle. Prior Functional Status Baseline Function- ADL's Independent Baseline Function- Mobility Independent Baseline Function- Recreation/Hobbies Bike rode every other day on streets. Current Functional Impairments (Reported) Functional Limitations- ADL's Zipping up zippers, mopping floors, txting. Functional Limitations- Recreation/ Pain with bicycle riding. Hobbies Personal Factors Other Personal Factors That May Effect Polymyalgia Rheumatica ( Therapy/Recovery currently affects R shoulder). PT-OP-C Subjective Start: 11/10/20 17:23 Freq: Status: Active Protocol: Document 12/07/20 14:17 LRN (Rec: 12/07/20 15:05 LRN [id number]) OP-PT Subjective Patient Comments Patient Comments R Hand is doing better. Can push on things with thumb and reach into the pocket without pain. Can do home things without pain. Able to shift gears of bike without pain. Has only tightness of the R thumb extensors. Patient Questionnaires Quick Dash- Upper Extremity Quick Dash UE Score 2.27 Quick Dash UE Impairment 1 to 19% Impaired (Score 1-19) OP-PT Pain Assessment Pain Assessment Grid Paper Pain Assessment Grid Completed Yes Location R thumb MCP jt Pain Location Details R thumb MCP jt, palmar side with pushing/poking at select angle Intensity 1 Scale Used Numeric (0 - 10) PT-OP-F Manual Assessment Start: 11/10/20 17:23 Freq: Status: Active Protocol: Document 11/13/20 08:11 LRN (Rec: 11/13/20 09:05 LRN [id number]) Manual Assessments Soft Tissue Assessment Soft Tissue Mobility Assessment Tender AP of R MCP joint, AB pollicus longus tendon, [place] , radial side of R wrist: 1st row carpal bones (naviucular & lunate) and ulnar side of flexor tendon (lunate, triquetrium interface). Tender R thumb Abductor longus tendon. Joint Mobility Assessment Joint Mobility Assessment Tender with PA & AP [place], due to pressure applied with testing. Mobility normal R & L wrist. PT-OP-H Neuro Start: 11/10/20 17:23 Freq: Status: Active Protocol: Document 11/13/20 08:11 LRN (Rec: 11/13/20 09:05 LRN [id number]) Sensation Evaluation Gross Sensation Gross Sensation WNL PT-OP-J Posture/Palpation/Skin Start: 11/10/20 17:23 Freq: Status: Active Protocol: Document 11/13/20 08:11 LRN (Rec: 11/13/20 12:06 LRN [id number]) Palpation Assessment Location R thumb MCP jt Palpation Location MCP jt Dorsal and Volar jt tenderness. Palpation Findings Tenderness Palpation Details No tenderness of lateral sides R thumb CMC jt Palpation Location CMC jt radial side, Abductor longus tendon Palpation Findings Tenderness L thumb CMC jt Palpation Details Normal L thumb MCP jt Palpation Details Normal PT-OP-K Range of Motion Start: 11/10/20 17:23 Freq: Status: Active Protocol: Document 12/07/20 14:17 LRN (Rec: 12/07/20 15:05 LRN [id number]) Wrist Goniometric Range of Motion Wrist Right Flexion Active (degrees) 68 Extension Active (degrees) 62 Ulnar Deviation Active (degrees) 30 Radial Deviation Active (degrees) 15 Left Flexion Active (degrees) 75 Extension Active (degrees) 57 Ulnar Deviation Active (degrees) 32 Radial Deviation Active (degrees) 15 PT-OP-L Special Tests Start: 11/10/20 17:23 Freq: Status: Active Protocol: Document 11/13/20 08:11 LRN (Rec: 11/13/20 12:06 LRN [id number]) Special Tests Wrist/Hand Special Tests CMC Grind Test Results R CMC jt: Negative Comments No pain with compression Ivelisse's Test Results R wrist: Negative Comments No pain with overpressure PT-OP-M Strength Start: 11/10/20 17:23 Freq: Status: Active Protocol: Document 12/07/20 14:17 LRN (Rec: 12/07/20 15:05 LRN [id number]) Hand Timber Sprinkler/Pinch Strength Hand Strength Right Comments K, 32, 31 (avg is 32.4 kg). Avg for 70-74 yo's: 34.2 R. Left Comments K, 36, 33 (avg is 34.3 kg). Avg for 70-74 yo's: 29.3 L. PT-OP-Q Treatments Start: 11/10/20 17:23 Freq: Status: Active Protocol: Document 12/07/20 14:17 LRN (Rec: 12/07/20 15:05 LRN [id number]) Therapeutic Exercises Sitting Exercises Wrist AROM Sitting Exercise Name Active wrist flex, ext, UD, RD Side bilateral Comments ROM taken Gripping Sitting Exercise Name Gripping hand dynomometer Side bilateral Comments Timber Sprinkler strength taken R CMC AB/AD stretch Sitting Exercise Name Passive stretch Side right Reps/Minutes 4' R CMC AB/AD Sitting Exercise Name Active thumb AB Side right Reps/Minutes 15x 2 CMC flex/ext ex Sitting Exercise Name Active Flex/ext Side right Reps/Minutes 15x 2 CMC flex/ext stretch Sitting Exercise Name Thumb Flex > Ext stretch Side right Reps/Minutes 4' MCP flex/ext stretch Sitting Exercise Name Active Ext stretch f/b opposition Comments Phys & v cuing to not overstrain with stretch IP flex/ext stretch Sitting Exercise Name Flex stretch Side right Reps/Minutes 4' Comments Phys cuing for hand positioning for self stretch Wrist flexion stretch Sitting Exercise Name Passive, self assisted Side right Reps/Minutes 10 SH x 10 Self-Care/Home Management Treatment Education Patient Education Home Exercise Program Other Education Reviewed self care for HEP. PT-OP-R Modalities Start: 11/10/20 17:23 Freq: Status: Active Protocol: Document 11/20/20 14:27 LRN (Rec: 11/20/20 16:36 LRN [id number]) Other Unlisted Modality Treatment Laser Name of Modality Laser Duration (Minutes) 2 Body Position Sitting Parameters Tendon/lig, chronic high pulse . Comments Extra time taken for set up and explanation of goggles. Treatment time: 1'4 at MCP and CMC jt. 60.3 J's PT-OP-T Assessment and Plan Start: 11/10/20 17:23 Freq: Status: Active Protocol: Document 12/07/20 14:17 LRN (Rec: 12/07/20 15:05 LRN [id number]) Physical Therapy Assessment Goals Four Impairment Decreased R electrical controls engineer strength (24. 6 kg, avg for 7-0-74 yo's is 34.2 kg) Impairment R hand electrical controls engineer strength (kg): 24 , 25, 25 (avg is 24.6 kg) Avg norm for 70-74 yo's: 34.2 R. Pain with shaking hands & gear shifting on bicycle. Short Term Goal (STG) Improve painfree electrical controls engineer strength with pt able to shake hands without pain. STG Duration 12/08/20 (12/07/20: MET GOAL) Alf Goal (LTG) Improve painfree electrical controls engineer strength with pt able to shift gears on his bicycle without pain. LTG Duration 01/12/21 (12/07/20: MET GOAL, stiff in R thumb, no pain) Three Impairment R thumb pain rated 3-6/10 Impairment Pain with zipping, texting Short Term Goal (STG) Pain no greater than 2/10 with zipping zipper and texting. STG Duration 12/08/20 (12/07/20: MET GOAL) Police Cadet Goal (LTG) Decrease pain to no greater than 1/10 with zipping zipper and texting. LTG Duration 01/12/21 (12/07/20: MET GOAL) Two Impairment Decreased R wrist AROM due to pain Impairment Pain with floor washing Short Term Goal (STG) Pt independent with R wrist AROM HEP. (11/20/20: Wrist flex stretch issued) STG Duration 11/17/20 (11/20/20: MET GOAL) Police Cadet Goal (LTG) No pain with floor washing. (12/07/20: Last time washed floor, no pain) LTG Duration 01/12/21 (12/07/20: MET GOAL) One Impairment Pt lacks appropriate self care HEP Short Term Goal (STG) Pt will be educated in self care edema and pain management home program. (11/17/20: Education in RICE) STG Duration 11/17/20 (11/24/20: MET GOAL) Alf Goal (LTG) Pt will be independent with a self care HEP. (12/08/11: Pt confident in his ability to continue his HEP) LTG Duration 01/12/21 (12/07/20: MET GOAL) Assessment Summary Assessment Pt returns with no complaints of R thumb pain, only tightness of his thumb extensor. His R hand strength is the same as the L hand; therefore mild weakness is present. His R wrist mobility is basically symmetrical to the left; therefore the pt appears to be at his prior level of function. He did note when lifting a computer he had discomfort in the R thumb that stopped when the action was complete. The pt is aware of using ice to the thumb with return of pain and has been educated in self edema/painb management techniques. The pt has met all goals and is ready to be placed on his independent self HEP. Physical Therapy Plan Discharge Physical Therapy Discharge Reasons Goals Met Discharge Comments Thank you for your referral.
== END 2020-12-08 07:55 | disposition home or self-care (01) ==
LOC: PHYS 14:15
PROVIDERS: PCP Family Medicine; Referring Provider Family Medicine; Visit Provider Family Medicine
DX: M79.644 Pain in right finger(s) (principal); M62.81 Muscle weakness (generalized)
CPT/HCPCS: 97110; 97162; 97535

== ENCOUNTER → 2025-01-26 10:03 | Outpatient (CLI) | payer MEDICARE, OTHER, SELFPAY ==
--- NOTE | 2025-01-26 10:05 | DI.RAD.S_ITS ---
PROCEDURE: XR HIP W PEL IF DONE BILAT 2V INDICATIONS: Radiculopathy, lumbar region TECHNIQUE: Three views of the hip were acquired. COMPARISON: None. FINDINGS: Bones: There are no osseous abnormalities. SI and hip joints: Mild bilateral hip degeneration appreciated. SI joints are normal. Moderate L4-5 and L5-S1 degenerative disc disease . Soft tissues: No soft tissue swelling, calcification or mass. IMPRESSION: Degeneration Dictated by: Adarsh Mojica M.D. on 01/27/2025 at 11:04 Approved by: Adarsh Mojica M.D. on 01/27/2025 at 11:04
== END ==
PROVIDERS: Family Provider Family Medicine; PCP Family Medicine; Referring Provider Family Medicine; Visit Provider Family Medicine
DX: M51.16 Intervertebral disc disorders with radiculopathy, lumbar region (principal); M51.17 Intervertebral disc disorders with radiculopathy, lumbosacral region; M25.511 Pain in right shoulder; M16.0 Bilateral primary osteoarthritis of hip
CPT/HCPCS: 73521

== ENCOUNTER 2025-02-28 12:15 | Outpatient (RCR) | payer MEDICARE, OTHER, SELFPAY ==
--- NOTE | 2024-11-29 15:05 | PT.OPPOC ---
Physical, Occupational & Speech Therapy At [facility] Current Diagnoses Polymyalgia rheumatica (11/29/24) Radiculopathy, lumbar region (11/29/24) Visit Care Team Role Provider Type Jaron Varela MD Attending Provider Physician Family Provider Primary Care Provider Referring Provider Specialty: Family Practice Address: [facility] [place] [facility] [place], [facility] Email: [email or web address] Plan Of Care PT OP: Lower Back/Lower Extremity Start: 11/29/24 14:23 Freq: Status: Active Protocol: Document 11/29/24 13:45 DCW (Rec: 11/29/24 15:04 DCW [id number]) Out-Patient Physical Therapy Visit Information Visit Information Visit Type Initial Evaluation Visit Start Time 13:45 Visit Stop Time 14:20 Visit Number 1 Number of LANGUAGE TRANSLATOR Visits 0 Progress Note Due 12/29/24 Evaluation Information Evaluation Date 11/29/24 Current Condition History of Current Condition Onset Date One year history Current Complaints Pain in bilateral posterior hips, left upper leg History of Current Pt is a 79 year old male presenting with a one year Condition history of bilateral posterior hip pain and left posterior lower extremity pain. Reports it has been ongoing for approximately one year, but has worsened over the last three months. Fairly consistent, but worse in the morning or when walking. Notes he is only able to walk for one mile before he is dragging my foot behind me. Feels his legs have been weaker recently, making ascending/descending stairs more difficult. Treatment Goals Patient/Caregiver I just want to be able to walk without pain after a Goals mile. OP-PT Subjective Patient Comments Patient Comments It's a real pain in the butt, literally. Patient Reported Worse Progress Patient Questionnaires Oswestry Low Back Index Oswestry Score 6/50 = 12% Manual Assessments Soft Tissue Assessment Soft Tissue Mobility Moderate tone with tenderness to palpation 2/4: pain Assessment with wincing along bilateral piriformis Lumbar Spine Range of Motion Lumbar Spine Active Degrees Testing Position Standing Flexion 50 Extension 25 Lateral Flexion Left 47 Lateral Flexion 52 Right ROM Limitations Muscle Tone Comments Lateral flexion measured in cm from fingertips to floor Special Tests Lumbar Spine Special Tests Straight Leg Raise Test Results Bilateral hamstring tightness A-P Shearing Test Results Negative Hip Special Tests Piriformis Test Results Positive bilaterally IRWIN Test Results Negative Hip Strength Hip Manual Muscle Testing Right Flexion (L2) 4 Good Extension (S1) 4- Good- Abduction 4- Good- Adduction 4+ Good+ External Rotation 4+ Good+ Internal Rotation 4 Good Left Flexion (L2) 4 Good Extension (S1) 4- Good- Abduction 4- Good- Adduction 4+ Good+ External Rotation 4+ Good+ Internal Rotation 4- Good- Knee Strength Knee Manual Muscle Testing Right Flexion (S2) 4+ Good+ Extension (L3) 4+ Good+ Left Flexion (S2) 4+ Good+ Extension (L3) 4+ Good+ Therapeutic Exercises Supine Exercises Piriformis stretch Supine Exercise Name Knee to opposite shoulder, Figure-4 Side left Sitting Exercises Piriformis stretch Sitting Exercise Seated Figure-4 Name Side bilateral Physical Therapy Assessment Rehab Potential Rehabilitation Excellent Potential Evaluation Complexity Number of Personal 1-2 Factors/ Comorbidities Number of Body 4 or More Systems Impaired Clinical Evolving Presentation at Evaluation Impairments Impairments Activity Tolerance,Functional Activities,Functional Mobility,Pain,ROM,Soft Tissue Mobility,Strength Goals Two Impairment Pt unable to ambulate more than one mile without pain Retirement Goal (LTG) Pt to report ability to walk >two miles without increased pain LTG Duration 02/27/25 One Impairment Pt does not have an appropriate home exercise program Toe Stripper Goal (LTG) Pt to demonstrate ability to perform at least three HEP exercises without cuing to demonstrate independence in HEP LTG Duration 02/27/25 Assessment Summary Assessment Pt presents with signs and symptoms consistent with referring diagnosis. Location of pain and special testing suggestive of increased tone/spasm in bilateral piriformis. Pt notes increased difficulty and pain with extended ambulation. Does show some bilateral LE weakness, as well as some decreased lumbar ROM, which will also likely impact his recent pain and decreasing functional mobility. Pt will likely benefit form skilled therapy focusing on stretching/flexibility, strengthening, and STM. Physical Therapy Plan Frequency and Duration Frequency of 2x/Week Treatment Plan of Care Start 11/29/24 Date Plan of Care End 02/27/25 Date Therapeutic Interventions Therapeutic Home Exercise Program,Joint Mobilizations,Manual Interventions Therapy,Neuromuscular Re-education,Patient/Caregiver Education,Self-Care/Home Management,Soft Tissue Mobilization,Therapeutic Activities,Therapeutic Exercises Modalities Cold Pack/Ice Massage,Electric Stimulation,Hot Packs, Ultrasound Next Visit Focus/Plan Next Note Type Treatment Note Plan of Care Dates Plan of Care Start Date 11/29/24 Plan of Care End Date 02/27/25 Electronically Signed by: Mathew Jc, PT 11/29/24 [id number] If you are in agreement with this Plan of Care, please return a signed and dated copy. I have reviewed this Plan of Care and certify that the skilled therapy services above are required to meet the patient?s needs. Physician Signature Date Printed Name and Credentials Clinical Instructor Signature Printed Name and Credentials
--- NOTE | 2024-12-07 15:15 | PT.OTN ---
Current Diagnoses Polymyalgia rheumatica (12/07/24) Radiculopathy, lumbar region (12/07/24) Physical Therapy Treatment Note PT OP: Lower Back/Lower Extremity Start: 11/29/24 14:23 Freq: Status: Active Protocol: Document 12/07/24 14:30 DCW (Rec: 12/07/24 15:15 DCW [id number]) Out-Patient Physical Therapy Visit Information Visit Information Visit Type Treatment Note Visit Start Time 14:30 Visit Stop Time 15:15 Visit Number 2 Number of CREATIVE CONSULTANT Visits 0 Progress Note Due 12/29/24 Evaluation Information Evaluation Date 11/29/24 OP-PT Subjective Patient Comments Patient Comments It's getting better, slowly but surely, it's better. I 'm amazed. Therapeutic Exercises Supine Exercises Piriformis stretch Supine Exercise Name Knee to opposite shoulder, Figure-4 Side bilateral Sidelying Exercises Hip Abduction Sidelying Exercise Hip Abduction Name Side bilateral Reverse Clamshell Sidelying Exercise Reverse Clamshell Name Side bilateral Resistance Lv 3 Clamshell Sidelying Exercise Clamshell Name Side bilateral Resistance Lv 3 Manual Therapy Treatment Consent Patient gave verbal Yes consent for manual treatment Soft Tissue Mobilization Piriformis Body Location B Piriformis Mobilization Type Sustained Pressure,Trigger Point Release Intensity/Depth Moderate Body Position Sidelying Physical Therapy Assessment Impairments Impairments Activity Tolerance,Functional Activities,Functional Mobility,Pain,ROM,Soft Tissue Mobility,Strength Goals Two Impairment Pt unable to ambulate more than one mile without pain Geospatial Analyst Goal (LTG) Pt to report ability to walk >two miles without increased pain LTG Duration 02/27/25 One Impairment Pt does not have an appropriate home exercise program Geospatial Analyst Goal (LTG) Pt to demonstrate ability to perform at least three HEP exercises without cuing to demonstrate independence in HEP LTG Duration 02/27/25 Assessment Summary Assessment Pt tolerated treatment very well, good response to STM. Education on TherEx for strengthening, pt already making good overall progress, feeling confident in current functional level. Physical Therapy Plan Frequency and Duration Frequency of 2x/Week Treatment Plan of Care Start 11/29/24 Date Plan of Care End 02/27/25 Date Therapeutic Interventions Therapeutic Home Exercise Program,Joint Mobilizations,Manual Interventions Therapy,Neuromuscular Re-education,Patient/Caregiver Education,Self-Care/Home Management,Soft Tissue Mobilization,Therapeutic Activities,Therapeutic Exercises Modalities Cold Pack/Ice Massage,Electric Stimulation,Hot Packs, Ultrasound Next Visit Focus/Plan Next Note Type Treatment Note Next Visit Plan Strengthening, STM, flexibility
--- NOTE | 2024-12-15 16:02 | PT.OTN ---
Current Diagnoses Polymyalgia rheumatica (12/15/24) Radiculopathy, lumbar region (12/15/24) Physical Therapy Treatment Note PT OP: Lower Back/Lower Extremity Start: 11/29/24 14:23 Freq: Status: Active Protocol: Document 12/15/24 15:15 DCW (Rec: 12/15/24 16:02 DCW [id number]) Out-Patient Physical Therapy Visit Information Visit Information Visit Type Treatment Note Visit Start Time 15:15 Visit Stop Time 16:00 Visit Number 3 Number of AVIATION WARFARE SYSTEMS OPERATOR Visits 0 Progress Note Due 12/29/24 Evaluation Information Evaluation Date 11/29/24 OP-PT Subjective Patient Comments Patient Comments Pt notes it is feeling sketchy, has been feeling some increased tightness in the back of his legs/hamstrings Therapeutic Exercises Supine Exercises Hamstring Stretch Supine Exercise Name HS stretch - contract-relax Side bilateral Single KtC Supine Exercise Name Single KtC Side bilateral Piriformis stretch Supine Exercise Name Knee to opposite shoulder, Figure-4 Side bilateral Standing Exercises ER/IR Standing Exercise Resisted ER/IR - Half-kneel on stool Name Side bilateral Other Exercises Resisted Ambulation Other Exercise Name Resisted side-stepping Resistance Green loop Manual Therapy Treatment Consent Patient gave verbal Yes consent for manual treatment Soft Tissue Mobilization Piriformis Body Location B Piriformis Mobilization Type Sustained Pressure,Trigger Point Release Intensity/Depth Moderate Body Position Sidelying Physical Therapy Assessment Impairments Impairments Activity Tolerance,Functional Activities,Functional Mobility,Pain,ROM,Soft Tissue Mobility,Strength Goals Two Impairment Pt unable to ambulate more than one mile without pain Senior Care Goal (LTG) Pt to report ability to walk >two miles without increased pain LTG Duration 02/27/25 One Impairment Pt does not have an appropriate home exercise program Senior Care Goal (LTG) Pt to demonstrate ability to perform at least three HEP exercises without cuing to demonstrate independence in HEP LTG Duration 02/27/25 Assessment Summary Assessment Pt continues to progress, does still exhibit increased tone in bilateral piriformis and hamstrings, but has been compliant with HEP and is doing better after some strengthening today. Physical Therapy Plan Frequency and Duration Frequency of 2x/Week Treatment Plan of Care Start 11/29/24 Date Plan of Care End 02/27/25 Date Therapeutic Interventions Therapeutic Home Exercise Program,Joint Mobilizations,Manual Interventions Therapy,Neuromuscular Re-education,Patient/Caregiver Education,Self-Care/Home Management,Soft Tissue Mobilization,Therapeutic Activities,Therapeutic Exercises Modalities Cold Pack/Ice Massage,Electric Stimulation,Hot Packs, Ultrasound Next Visit Focus/Plan Next Note Type Treatment Note Next Visit Plan Strengthening, STM, flexibility
--- NOTE | 2024-12-21 15:13 | PT.OTN ---
Current Diagnoses Polymyalgia rheumatica (12/21/24) Radiculopathy, lumbar region (12/21/24) Physical Therapy Treatment Note PT OP: Lower Back/Lower Extremity Start: 11/29/24 14:23 Freq: Status: Active Protocol: Document 12/21/24 14:30 DCW (Rec: 12/21/24 15:12 DCW [id number]) Out-Patient Physical Therapy Visit Information Visit Information Visit Type Treatment Note Visit Start Time 14:30 Visit Stop Time 15:15 Visit Number 4 Number of COMPUTER TRAINER Visits 0 Progress Note Due 12/29/24 Evaluation Information Evaluation Date 11/29/24 OP-PT Subjective Patient Comments Patient Comments There's a bit of a kink in my low back. Gym Equipment Therapeutic Ball LTR Exercise Details LTR Ball Size/Color Red - 55 cm Body Position Supine Therapeutic Exercises Sidelying Exercises Open Book Sidelying Exercise Open Book Name Side bilateral Sitting Exercises Self-STM Sitting Exercise Tennis ball on piriformis Name Side bilateral Standing Exercises Hip Extension Standing Exercise Hip Extension Name Side bilateral Resistance Green loop Other Exercises Resisted Ambulation Other Exercise Name Resisted side-stepping Resistance Green loop Manual Therapy Treatment Consent Patient gave verbal Yes consent for manual treatment Soft Tissue Mobilization Piriformis Body Location B Piriformis, R Lumbar Mobilization Type Sustained Pressure,Trigger Point Release Intensity/Depth Moderate Body Position Sidelying Physical Therapy Assessment Impairments Impairments Activity Tolerance,Functional Activities,Functional Mobility,Pain,ROM,Soft Tissue Mobility,Strength Goals Two Impairment Pt unable to ambulate more than one mile without pain Fpc Goal (LTG) Pt to report ability to walk >two miles without increased pain LTG Duration 02/27/25 One Impairment Pt does not have an appropriate home exercise program Post Acute Care Registered Nurse Goal (LTG) Pt to demonstrate ability to perform at least three HEP exercises without cuing to demonstrate independence in HEP LTG Duration 02/27/25 Assessment Summary Assessment Pt tolerated treatment well today, came in with increased soreness/tone in left low back, but good response to STM, felt significantly better leaving clinic today. Continue to focus on LE strengthening and tone management. Physical Therapy Plan Frequency and Duration Frequency of 2x/Week Treatment Plan of Care Start 11/29/24 Date Plan of Care End 02/27/25 Date Therapeutic Interventions Therapeutic Home Exercise Program,Joint Mobilizations,Manual Interventions Therapy,Neuromuscular Re-education,Patient/Caregiver Education,Self-Care/Home Management,Soft Tissue Mobilization,Therapeutic Activities,Therapeutic Exercises Modalities Cold Pack/Ice Massage,Electric Stimulation,Hot Packs, Ultrasound Next Visit Focus/Plan Next Note Type Treatment Note Next Visit Plan Strengthening, STM, flexibility
--- NOTE | 2024-12-24 10:32 | PT.OPPN ---
Current Diagnoses Polymyalgia rheumatica (12/24/24) Radiculopathy, lumbar region (12/24/24) Physical Therapy Progress Note PT OP: Lower Back/Lower Extremity Start: 11/29/24 14:23 Freq: Status: Active Protocol: Document 12/24/24 09:45 DCW (Rec: 12/24/24 10:32 DCW [id number]) Out-Patient Physical Therapy Visit Information Visit Information Visit Type Progress Note Visit Start Time 09:45 Visit Stop Time 10:30 Visit Number 5 Number of CURRICULUM ASSISTANT Visits 0 Progress Note Due 01/23/25 Evaluation Information Evaluation Date 11/29/24 OP-PT Subjective Patient Comments Patient Comments I went for a walk in the [place] and expected to wake up and feel sore today, but I'm feeling pretty good. The bad news is that I'm struggling to get my leg up over my bike seat. Therapeutic Exercises Supine Exercises Hamstring Stretch Supine Exercise Name HS stretch - contract-relax Side bilateral Single KtC Supine Exercise Name Single KtC Side bilateral Piriformis stretch Supine Exercise Name Knee to opposite shoulder, Figure-4 Side bilateral Sidelying Exercises Open Book Sidelying Exercise Open Book Name Side bilateral Clamshell Sidelying Exercise Clamshell Name Side bilateral Resistance Lv 3 Manual Therapy Treatment Consent Patient gave verbal Yes consent for manual treatment Soft Tissue Mobilization Piriformis Body Location B Piriformis, B Lumbar Mobilization Type Sustained Pressure,Trigger Point Release Intensity/Depth Moderate Body Position Sidelying Physical Therapy Assessment Impairments Impairments Activity Tolerance,Functional Activities,Functional Mobility,Pain,ROM,Soft Tissue Mobility,Strength Goals Two Impairment Pt unable to ambulate more than one mile without pain Mcc Goal (LTG) Pt to report ability to walk >two miles without increased pain LTG Duration 02/27/25 One Impairment Pt does not have an appropriate home exercise program Mcc Goal (LTG) Pt to demonstrate ability to perform at least three HEP exercises without cuing to demonstrate independence in HEP LTG Duration 02/27/25 Assessment Summary Assessment Pt doing well with improved pain and mobility, does continue to exhibit tightness/hypertonia in low back and legs, continue to focus on flexibility and strengthening. feels more confident with HEP, but admits to forgetting a few different exercises, did a short review today. Physical Therapy Plan Frequency and Duration Frequency of 2x/Week Treatment Plan of Care Start 11/29/24 Date Plan of Care End 02/27/25 Date Therapeutic Interventions Therapeutic Home Exercise Program,Joint Mobilizations,Manual Interventions Therapy,Neuromuscular Re-education,Patient/Caregiver Education,Self-Care/Home Management,Soft Tissue Mobilization,Therapeutic Activities,Therapeutic Exercises Modalities Cold Pack/Ice Massage,Electric Stimulation,Hot Packs, Ultrasound Next Visit Focus/Plan Next Note Type Treatment Note Next Visit Plan Strengthening, STM, flexibility
--- NOTE | 2025-01-10 17:01 | PT.OTN ---
Current Diagnoses Polymyalgia rheumatica (01/10/25) Radiculopathy, lumbar region (01/10/25) Physical Therapy Treatment Note PT OP: Lower Back/Lower Extremity Start: 11/29/24 14:23 Freq: Status: Active Protocol: Document 01/10/25 16:15 DCW (Rec: 01/10/25 17:01 DCW [id number]) Out-Patient Physical Therapy Visit Information Visit Information Visit Type Treatment Note Visit Start Time 16:15 Visit Stop Time 17:00 Visit Number 6 Number of DISTRICT OR DISTRICT OFFICE DIRECTOR Visits 0 Progress Note Due 01/23/25 Evaluation Information Evaluation Date 11/29/24 OP-PT Subjective Patient Comments Patient Comments I still have sciatica, it seems to be developing on both sides now. Gym Equipment Shuttle Balance Red Details WBOS, Staggered Therapeutic Exercises Supine Exercises Hamstring Stretch Supine Exercise Name HS stretch - contract-relax Side bilateral Single KtC Supine Exercise Name Single KtC Side bilateral Piriformis stretch Supine Exercise Name Knee to opposite shoulder, Figure-4 Side bilateral Manual Therapy Treatment Consent Patient gave verbal Yes consent for manual treatment Soft Tissue Mobilization Piriformis Body Location B Piriformis, B Lumbar Mobilization Type Sustained Pressure,Trigger Point Release Intensity/Depth Moderate Body Position Sidelying Physical Therapy Assessment Impairments Impairments Activity Tolerance,Functional Activities,Functional Mobility,Pain,ROM,Soft Tissue Mobility,Strength Goals Two Impairment Pt unable to ambulate more than one mile without pain Vendor Management Specialist Goal (LTG) Pt to report ability to walk >two miles without increased pain LTG Duration 02/27/25 One Impairment Pt does not have an appropriate home exercise program Usp Goal (LTG) Pt to demonstrate ability to perform at least three HEP exercises without cuing to demonstrate independence in HEP LTG Duration 02/27/25 Assessment Summary Assessment Good challenges with shuttle balance today, focused on core and hip strengthening. Continues to exhibit good response from STM. Discussed importance of continuing to stretch at home. Physical Therapy Plan Frequency and Duration Frequency of 2x/Week Treatment Plan of Care Start 11/29/24 Date Plan of Care End 02/27/25 Date Therapeutic Interventions Therapeutic Home Exercise Program,Joint Mobilizations,Manual Interventions Therapy,Neuromuscular Re-education,Patient/Caregiver Education,Self-Care/Home Management,Soft Tissue Mobilization,Therapeutic Activities,Therapeutic Exercises Modalities Cold Pack/Ice Massage,Electric Stimulation,Hot Packs, Ultrasound Next Visit Focus/Plan Next Note Type Treatment Note Next Visit Plan Strengthening, STM, flexibility
--- NOTE | 2025-01-17 14:26 | PT.OTN ---
Current Diagnoses Polymyalgia rheumatica (01/17/25) Radiculopathy, lumbar region (01/17/25) Physical Therapy Treatment Note PT OP: Lower Back/Lower Extremity Start: 11/29/24 14:23 Freq: Status: Active Protocol: Document 01/17/25 13:50 DCW (Rec: 01/17/25 14:26 DCW [id number]) Out-Patient Physical Therapy Visit Information Visit Information Visit Type Treatment Note Visit Start Time 13:50 Visit Stop Time 14:30 Visit Number 7 Number of BORDEREAU CLERK Visits 0 Progress Note Due 01/23/25 Evaluation Information Evaluation Date 11/29/24 OP-PT Subjective Patient Comments Patient Comments Pt noticed he is struggling more with calf weakness, especially getting up onto his toes. Gym Equipment Shuttle Recovery Unilateral Heel Raises Resistance 25# Bilateral Heel Raises Resistance 50# Shuttle Balance Red Details WBOS, Staggered Therapeutic Exercises Supine Exercises Hamstring Stretch Supine Exercise Name HS stretch - contract-relax Side bilateral Single KtC Supine Exercise Name Single KtC Side bilateral Piriformis stretch Supine Exercise Name Knee to opposite shoulder, Figure-4 Side bilateral Other Exercises Resisted Ambulation Other Exercise Name Resisted side-stepping Resistance Green loop Manual Therapy Treatment Consent Patient gave verbal Yes consent for manual treatment Soft Tissue Mobilization Piriformis Body Location B Piriformis, B Lumbar Mobilization Type Sustained Pressure,Trigger Point Release Intensity/Depth Moderate Body Position Sidelying Physical Therapy Assessment Impairments Impairments Activity Tolerance,Functional Activities,Functional Mobility,Pain,ROM,Soft Tissue Mobility,Strength Goals Two Impairment Pt unable to ambulate more than one mile without pain Shelter Goal (LTG) Pt to report ability to walk >two miles without increased pain LTG Duration 02/27/25 One Impairment Pt does not have an appropriate home exercise program Shelter Goal (LTG) Pt to demonstrate ability to perform at least three HEP exercises without cuing to demonstrate independence in HEP LTG Duration 02/27/25 Assessment Summary Assessment Pt does display some increased weakness in bilateral plantarflexion, struggled a bit with 50# on leg press performing heel raises. Continue to focus on tone management, functional mobility, and strengthening. Physical Therapy Plan Frequency and Duration Frequency of 2x/Week Treatment Plan of Care Start 11/29/24 Date Plan of Care End 02/27/25 Date Therapeutic Interventions Therapeutic Home Exercise Program,Joint Mobilizations,Manual Interventions Therapy,Neuromuscular Re-education,Patient/Caregiver Education,Self-Care/Home Management,Soft Tissue Mobilization,Therapeutic Activities,Therapeutic Exercises Modalities Cold Pack/Ice Massage,Electric Stimulation,Hot Packs, Ultrasound Next Visit Focus/Plan Next Note Type Treatment Note Next Visit Plan Strengthening, STM, flexibility
--- NOTE | 2025-01-25 17:49 | PT.OTN ---
Current Diagnoses Polymyalgia rheumatica (01/25/25) Radiculopathy, lumbar region (01/25/25) Physical Therapy Treatment Note PT OP: Lower Back/Lower Extremity Start: 11/29/24 14:23 Freq: Status: Active Protocol: Document 01/25/25 17:00 DCW (Rec: 01/25/25 17:49 DCW [id number]) Out-Patient Physical Therapy Visit Information Visit Information Visit Type Progress Note Visit Start Time 17:00 Visit Stop Time 17:45 Visit Number 8 Number of VELVET CUTTER Visits 0 Progress Note Due 02/24/25 Evaluation Information Evaluation Date 11/29/24 OP-PT Subjective Patient Comments Patient Comments Pt noting tightness on both sides currently. Gym Equipment Shuttle Recovery Unilateral Heel Raises Resistance 37# Bilateral Heel Raises Resistance 75# Shuttle Balance Red Details WBOS, Staggered Therapeutic Exercises Supine Exercises Hamstring Stretch Supine Exercise Name HS stretch - contract-relax Side bilateral Single KtC Supine Exercise Name Single KtC Side bilateral Piriformis stretch Supine Exercise Name Knee to opposite shoulder, Figure-4 Side bilateral Standing Exercises Calf Stretch Standing Exercise Gastroc/Soleus stretch Name Side bilateral Equipment Used CONOR Hip Extension Standing Exercise Hip Extension Name Side bilateral Resistance Green loop Other Exercises Resisted Ambulation Other Exercise Name Resisted side-stepping Resistance Green loop Manual Therapy Treatment Consent Patient gave verbal Yes consent for manual treatment Soft Tissue Mobilization Piriformis Body Location B Piriformis, B Lumbar Mobilization Type Sustained Pressure,Trigger Point Release Intensity/Depth Moderate Body Position Sidelying Physical Therapy Assessment Impairments Impairments Activity Tolerance,Functional Activities,Functional Mobility,Pain,ROM,Soft Tissue Mobility,Strength Goals Two Impairment Pt unable to ambulate more than one mile without pain Half-Way Goal (LTG) Pt to report ability to walk >two miles without increased pain LTG Duration 02/27/25 One Impairment Pt does not have an appropriate home exercise program Narcotics Investigator Goal (LTG) Pt to demonstrate ability to perform at least three HEP exercises without cuing to demonstrate independence in HEP LTG Duration 02/27/25 Assessment Summary Assessment Pt had been progressing well, but came in today with increased left-sided pain. Continues to have posterior hip pain, especially when getting up first thing in the morning. Continue to focus on STM, flexibility, and strengthening. Physical Therapy Plan Frequency and Duration Frequency of 2x/Week Treatment Plan of Care Start 11/29/24 Date Plan of Care End 02/27/25 Date Therapeutic Interventions Therapeutic Home Exercise Program,Joint Mobilizations,Manual Interventions Therapy,Neuromuscular Re-education,Patient/Caregiver Education,Self-Care/Home Management,Soft Tissue Mobilization,Therapeutic Activities,Therapeutic Exercises Modalities Cold Pack/Ice Massage,Electric Stimulation,Hot Packs, Ultrasound Next Visit Focus/Plan Next Note Type Treatment Note Next Visit Plan Strengthening, STM, flexibility
--- NOTE | 2025-02-04 12:12 | PT.OTN ---
Current Diagnoses Polymyalgia rheumatica (02/04/25) Radiculopathy, lumbar region (02/04/25) Physical Therapy Treatment Note PT OP: Lower Back/Lower Extremity Start: 11/29/24 14:23 Freq: Status: Active Protocol: Document 02/04/25 11:30 DCW (Rec: 02/04/25 12:12 DCW [id number]) Out-Patient Physical Therapy Visit Information Visit Information Visit Type Treatment Note Visit Start Time 11:30 Visit Stop Time 12:15 Visit Number 9 Number of SECURITY ESCORT Visits 0 Progress Note Due 02/24/25 Evaluation Information Evaluation Date 11/29/24 OP-PT Subjective Patient Comments Patient Comments I used to wake up in the morning and find it hard to move, and now it's not, so I know there's some progress there. Gym Equipment Shuttle Recovery Unilateral Heel Raises Resistance 37# Bilateral Heel Raises Resistance 75# Shuttle Balance Red Details WBOS, Staggered Therapeutic Exercises Supine Exercises Hamstring Stretch Supine Exercise Name HS stretch - contract-relax Side bilateral Single KtC Supine Exercise Name Single KtC Side bilateral Piriformis stretch Supine Exercise Name Knee to opposite shoulder, Figure-4 Side bilateral Manual Therapy Treatment Consent Patient gave verbal Yes consent for manual treatment Soft Tissue Mobilization Piriformis Body Location B Piriformis, B Lumbar Mobilization Type Sustained Pressure,Trigger Point Release Intensity/Depth Moderate Body Position Sidelying Physical Therapy Assessment Impairments Impairments Activity Tolerance,Functional Activities,Functional Mobility,Pain,ROM,Soft Tissue Mobility,Strength Goals Two Impairment Pt unable to ambulate more than one mile without pain Fci Goal (LTG) Pt to report ability to walk >two miles without increased pain LTG Duration 02/27/25 One Impairment Pt does not have an appropriate home exercise program Boat Repairer Goal (LTG) Pt to demonstrate ability to perform at least three HEP exercises without cuing to demonstrate independence in HEP LTG Duration 02/27/25 Assessment Summary Assessment Pt doing better today, noting significant decrease in severity and frequency of pain. Still getting tightness through posterior hips. Continue working on STM, flexibility, and strengthening. Physical Therapy Plan Frequency and Duration Frequency of 2x/Week Treatment Plan of Care Start 11/29/24 Date Plan of Care End 02/27/25 Date Therapeutic Interventions Therapeutic Home Exercise Program,Joint Mobilizations,Manual Interventions Therapy,Neuromuscular Re-education,Patient/Caregiver Education,Self-Care/Home Management,Soft Tissue Mobilization,Therapeutic Activities,Therapeutic Exercises Modalities Cold Pack/Ice Massage,Electric Stimulation,Hot Packs, Ultrasound Next Visit Focus/Plan Next Note Type Treatment Note Next Visit Plan Strengthening, STM, flexibility
--- NOTE | 2025-02-11 12:59 | PT.OTN ---
Current Diagnoses Polymyalgia rheumatica (02/11/25) Radiculopathy, lumbar region (02/11/25) Physical Therapy Treatment Note PT OP: Lower Back/Lower Extremity Start: 11/29/24 14:23 Freq: Status: Active Protocol: Document 02/11/25 12:19 DCW (Rec: 02/11/25 12:58 DCW [id number]) Out-Patient Physical Therapy Visit Information Visit Information Visit Type Treatment Note Visit Start Time 12:15 Visit Stop Time 13:00 Visit Number 10 Number of FPGA DESIGN ENGINEER Visits 0 Progress Note Due 02/24/25 Evaluation Information Evaluation Date 11/29/24 OP-PT Subjective Patient Comments Patient Comments Stiff, but moving. Therapeutic Exercises Supine Exercises Hip Flexor Supine Exercise Name Hip Flexor stretch - Ga stretch Side bilateral Hamstring Stretch Supine Exercise Name HS stretch - contract-relax Side bilateral Single KtC Supine Exercise Name Single KtC Side bilateral Piriformis stretch Supine Exercise Name Knee to opposite shoulder, Figure-4 Side bilateral Standing Exercises Calf Stretch Standing Exercise Gastroc/Soleus stretch Name Side bilateral Equipment Used CONOR Hip Extension Standing Exercise Hip Extension Name Side bilateral Resistance Lv 3 loop Other Exercises Resisted Ambulation Other Exercise Name Resisted side-stepping Resistance Lv 3 loop Manual Therapy Treatment Consent Patient gave verbal Yes consent for manual treatment Soft Tissue Mobilization Piriformis Body Location B Piriformis, B Lumbar Mobilization Type Sustained Pressure,Trigger Point Release Intensity/Depth Moderate Body Position Sidelying Physical Therapy Assessment Impairments Impairments Activity Tolerance,Functional Activities,Functional Mobility,Pain,ROM,Soft Tissue Mobility,Strength Goals Two Impairment Pt unable to ambulate more than one mile without pain Green Building Materials Designer Goal (LTG) Pt to report ability to walk >two miles without increased pain LTG Duration 02/27/25 One Impairment Pt does not have an appropriate home exercise program Green Building Materials Designer Goal (LTG) Pt to demonstrate ability to perform at least three HEP exercises without cuing to demonstrate independence in HEP LTG Duration 02/27/25 Assessment Summary Assessment Pt making progress with hip stiffness, much less sore than he was previously. Will continue to benefit from skilled therapy with focus on hip mobility, strengthening, and STM. Physical Therapy Plan Frequency and Duration Frequency of 2x/Week Treatment Plan of Care Start 11/29/24 Date Plan of Care End 02/27/25 Date Therapeutic Interventions Therapeutic Home Exercise Program,Joint Mobilizations,Manual Interventions Therapy,Neuromuscular Re-education,Patient/Caregiver Education,Self-Care/Home Management,Soft Tissue Mobilization,Therapeutic Activities,Therapeutic Exercises Modalities Cold Pack/Ice Massage,Electric Stimulation,Hot Packs, Ultrasound Next Visit Focus/Plan Next Note Type Treatment Note Next Visit Plan Strengthening, STM, flexibility
--- NOTE | 2025-02-18 12:17 | PT.OTN ---
Current Diagnoses Polymyalgia rheumatica (02/18/25) Radiculopathy, lumbar region (02/18/25) Physical Therapy Treatment Note PT OP: Lower Back/Lower Extremity Start: 11/29/24 14:23 Freq: Status: Active Protocol: Document 02/18/25 11:33 SP (Rec: 02/18/25 12:28 SP [id number]) Out-Patient Physical Therapy Visit Information Visit Information Visit Type Treatment Note Visit Start Time 11:33 Visit Stop Time 12:17 Visit Number 11 Number of LOG BUNCHER Visits 1 Progress Note Due 02/24/25 OP-PT Subjective Patient Comments Patient Comments Pt reports is able to walk 1 block now, most in past few years. Uses his rowing machine lately. Hasn't returned to riding his Ebike due to can't get leg over high seat. HE is walking up/down flight stairs multiple times daily but only receiprocal steppiing vs 2 steps at time in past due to sciatica, no pain stair mgt though just tiring. Therapeutic Exercises Supine Exercises Hip Flexor Supine Exercise Name Hip Flexor stretch - Modified Ga stretch Side bilateral Reps/Minutes 60 sec Comments upper back Hamstring Stretch Supine Exercise Name HS stretch - contract-relax Side bilateral Single KtC Supine Exercise Name Single KtC Side bilateral Reps/Minutes 60 sec Comments good breath Piriformis stretch Supine Exercise Name Knee to opposite shoulder, Figure-4 Side bilateral Sidelying Exercises Open Book Sidelying Exercise Open Book Name Side bilateral Reps/Minutes 5-10 reps Comments provided HO Hip Abduction Sidelying Exercise Hip Abduction Name Side bilateral Resistance TB #3 at thighs Reps/Minutes 15 reps Comments cued TA and stacked side alignment Reverse Clamshell Sidelying Exercise Reverse Clamshell Name Side bilateral Resistance TB #3 at ankles Reps/Minutes 15 reps Comments cued TA, not rolling back Clamshell Sidelying Exercise Clamshell Name Side bilateral Resistance TB #3 at thighs Reps/Minutes 15 reps Comments cued TA and stacked side alignment Standing Exercises Hip Hydrant Standing Exercise Hip circles (hip circumduction over/back wedge on floor Name ) Side bilateral Equipment Used rail contact Reps/Minutes 10 reps Comments assimulate getting on/off bike Physical Therapy Assessment Goals Two Impairment Pt unable to ambulate more than one mile without pain [facility] Goal (LTG) Pt to report ability to walk >two miles without increased pain LTG Duration 02/27/25 One Impairment Pt does not have an appropriate home exercise program Information Clerk Cashier Goal (LTG) Pt to demonstrate ability to perform at least three HEP exercises without cuing to demonstrate independence in HEP LTG Duration 02/27/25 Assessment Summary Assessment Pt good response to addition of resistance to sidelying ther ex today. Continued instruction of flexibility of hips and back with cues for set up and proper form stretching this tx with provided hand outs to supporty carryover. Instructed standing hip hydrants to support strength and AROM to return to LE lift over bike seat to return to riding his ebike. Physical Therapy Plan Frequency and Duration Frequency of 2x/Week Treatment Plan of Care Start 11/29/24 Date Plan of Care End 02/27/25 Date Therapeutic Interventions Therapeutic Home Exercise Program,Joint Mobilizations,Manual Interventions Therapy,Neuromuscular Re-education,Patient/Caregiver Education,Self-Care/Home Management,Soft Tissue Mobilization,Therapeutic Activities,Therapeutic Exercises Modalities Cold Pack/Ice Massage,Electric Stimulation,Hot Packs, Ultrasound Next Visit Focus/Plan Next Note Type Progress Note Next Visit Plan Recheck HEP: stretching and strengthening, added standing hip hydrants. POC: Strengthening, STM, flexibility
--- NOTE | 2025-02-28 12:54 | PT.OPPOC ---
Physical, Occupational & Speech Therapy At [facility] Current Diagnoses Polymyalgia rheumatica (02/28/25) Radiculopathy, lumbar region (02/28/25) Visit Care Team Role Provider Type Jaron Varela MD Attending Provider Physician Family Provider Primary Care Provider Referring Provider Specialty: Family Practice Address: [facility] [place], [place], [facility] Email: [email or web address] Plan Of Care PT OP: Lower Back/Lower Extremity Start: 11/29/24 14:23 Freq: Status: Active Protocol: Document 02/28/25 12:20 DCW (Rec: 02/28/25 12:53 DCW [id number]) Out-Patient Physical Therapy Visit Information Visit Information Visit Type Discharge Summary Visit Start Time 12:20 Visit Stop Time 12:50 Visit Number 12 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 Lumbar Spine Range of Motion Lumbar Spine Active Degrees Testing Position Standing Flexion 60 Extension 30 Lateral Flexion Left 52 Lateral Flexion 56 Right ROM Limitations Muscle Tone Comments Lateral flexion measured in cm from fingertips to floor Special Tests Lumbar Spine Special Tests Straight Leg Raise Test Results Bilateral hamstring tightness A-P Shearing Test Results Negative Hip Strength Hip Manual Muscle Testing Right Flexion (L2) 4+ Good+ Extension (S1) 4 Good Abduction 4 Good Adduction 4+ Good+ External Rotation 4+ Good+ Internal Rotation 4+ Good+ Left Flexion (L2) 4+ Good+ Extension (S1) 4+ Good+ Abduction 4 Good Adduction 4+ Good+ External Rotation 4+ Good+ Internal Rotation 4+ Good+ Knee Strength Knee Manual Muscle Testing Right Flexion (S2) 4+ Good+ Extension (L3) 4+ Good+ Left Flexion (S2) 4+ Good+ Extension (L3) 4+ Good+ Therapeutic Exercises Supine Exercises Hip Flexor Supine Exercise Name Hip Flexor stretch - Modified Ga stretch Side bilateral Reps/Minutes 60 sec Comments HEP review Hamstring Stretch Supine Exercise Name HS stretch /c added ankle pump Side bilateral Comments HEP review Piriformis stretch Supine Exercise Name Knee to opposite shoulder Side bilateral Comments HEP review Sidelying Exercises Open Book Sidelying Exercise Open Book Name Side bilateral Reps/Minutes 5-10 reps Comments provided HO Reverse Clamshell Sidelying Exercise Reverse Clamshell Name Side bilateral Resistance TB #3 at ankles Reps/Minutes 15 reps Comments cued TA, not rolling back Clamshell Sidelying Exercise Clamshell Name Side bilateral Resistance TB #3 at thighs Reps/Minutes 15 reps Comments cued TA and stacked side alignment Physical Therapy Assessment Impairments Impairments Activity Tolerance,Functional Activities,Functional Mobility,Pain,ROM,Soft Tissue Mobility,Strength Goals Two Impairment Pt unable to ambulate more than one mile without pain 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 Pt happy with current level of function, agreeable to discharge from skilled therapy at this time. Physical Therapy Plan Frequency and Duration Frequency of 2x/Week Treatment Plan of Care Start 02/28/25 Date Plan of Care End 03/01/25 Date Therapeutic Interventions Therapeutic Home Exercise Program,Joint Mobilizations,Manual Interventions Therapy,Neuromuscular Re-education,Patient/Caregiver Education,Self-Care/Home Management,Soft Tissue Mobilization,Therapeutic Activities,Therapeutic Exercises Modalities Cold Pack/Ice Massage,Electric Stimulation,Hot Packs, Ultrasound Discharge Physical Therapy Discharge Comments Discharge to independent HEP Next Visit Focus/Plan Next Note Type Discharge Summary Plan of Care Dates Plan of Care Start Date 02/28/25 Plan of Care End Date 03/01/25 Electronically Signed by: Mathew Jc, PT 02/28/25 6019 If you are in agreement with this Plan of Care, please return a signed and dated copy. I have reviewed this Plan of Care and certify that the skilled therapy services above are required to meet the patient?s needs. Physician Signature Date Printed Name and Credentials Clinical Instructor Signature Printed Name and Credentials
== END 2025-02-28 13:11 | disposition home or self-care (01) ==
LOC: PHYS 12:15
PROVIDERS: Family Provider Family Medicine; PCP Family Medicine; Referring Provider Family Medicine; Visit Provider Family Medicine
DX: M54.16 Radiculopathy, lumbar region (principal); M35.3 Polymyalgia rheumatica
CPT/HCPCS: 97110; 97112; 97140; 97162

== ENCOUNTER → 2025-03-31 16:41 | Outpatient (CLI) | payer MEDICARE, OTHER, SELFPAY ==
--- NOTE | 2025-03-31 16:43 | DI.MRI.S_ITS ---
PROCEDURE: MR LUMBAR SPINE WO CON INDICATIONS: low back and bilateral lower limb pain TECHNIQUE: Noncontrast sagittal T1 spin echo and T2 fast echo, sagittal STIR, and T2 fast spin echo through the lumbar spine. In cases with scoliosis, additional coronal T2 fast spin echo may be performed. COMPARISON: None. FINDINGS: Image quality: Excellent. Alignment and Curvature: Levo scoliotic curvature. Grade 1 retrolisthesis of L1 on L2 and L2 on L3. Bone Marrow: Multilevel degenerative endplate changes. Marrow is of normal overall signal. No acute vertebral body compression fractures. Spinal Cord: Conus medullaris terminates at the L1 level. Visualized cord demonstrates normal signal and size. Paraspinous Soft Tissues: No paravertebral masses. T12-L1: Disc desiccation and facet arthropathy. No central canal or neural foraminal stenosis. L1-L2: Disc desiccation and mild disc bulge. Facet arthropathy. No significant central canal stenosis. Mild bilateral neural foraminal stenosis. L2-L3: Disc desiccation and moderate height loss. Diffuse disc bulge. Facet hypertrophy and thickening of ligamentum flavum. Moderate central canal stenosis. Moderate to severe right and moderate left neural foraminal stenosis. L3-L4: Disc desiccation diffuse disc bulge with small superimposed central disc protrusion. Facet hypertrophy and thickening of ligamentum flavum. Severe central canal stenosis. Moderate to severe left and moderate right neural foraminal stenosis. L4-L5: Disc desiccation and moderate height loss. Diffuse disc bulge with left subarticular disc extrusion. Facet arthropathy and thickening of ligamentum flavum. Moderate central canal stenosis. Narrowing of the left lateral recess with possible impingement the descending left L5 nerve root. Moderate to severe left and moderate right neural foraminal stenosis. L5-S1: Disc desiccation and mild diffuse disc bulge with small superimposed central disc protrusion. Facet hypertrophy. Mild central canal stenosis. Moderate to severe bilateral neural foraminal stenosis. IMPRESSION: 1. Multilevel degenerative changes of the lumbar spine as described above. 2. Severe central canal stenosis at L3-L4. Moderate central canal stenosis at L2-L3 and L4-5. 3. Multilevel moderate to severe neural foraminal stenosis from L2 through S1. Dictated by: Wild Guerrero M.D. on 04/01/2025 at 10:25 Approved by: Wild Guerrero M.D. on 04/01/2025 at 10:29
--- NOTE | 2025-03-31 17:14 | DI.RAD.S_ITS ---
PROCEDURE: XR LUMBAR SPINE MIN 4V INDICATIONS: low back and bilateral lower limb pain TECHNIQUE: 5 views of the lumbar spine acquired, including flexion and extension views. COMPARISON: [facility], MR, MR LUMBAR SPINE WO CON, 03/31/2025, 16:47. FINDINGS: Bones: 5 nonrib-bearing vertebrae are present. No acute vertebral body compression fractures. No suspicious bony lesions. Grade 1 L5 on S1 and L4 on L5 anterolisthesis. Grade 1 L2 on L3 retrolisthesis. Mild levoscoliosis of the lumbar spine. Prominent facet arthropathy present at L3-4, L4-5 and L5-S1. Multilevel degenerative disc disease is most pronounced at the moderate to marked L2-3 disc narrowing. Soft tissues: Overlying bowel gas pattern is normal. No suspicious soft tissue calcifications. Flexion/extension: Limited range of motion with flexion. Normal range of motion with extension. No significant change in alignment with motion. IMPRESSION: No acute bony abnormality. Multilevel degenerative disc and facet arthropathy as above. Dictated by: Lakia Ewing M.D. on 04/03/2025 at 18:44 Approved by: Lakia Ewing M.D. on 04/03/2025 at 18:46
== END ==
PROVIDERS: Family Provider Family Medicine; PCP Family Medicine; Referring Provider Physical Medicine & Rehabilitation; Visit Provider Physical Medicine & Rehabilitation
DX: M47.816 Spondylosis without myelopathy or radiculopathy, lumbar region (principal); M47.817 Spondylosis without myelopathy or radiculopathy, lumbosacral region; M48.061 Spinal stenosis, lumbar region without neurogenic claudication; M48.07 Spinal stenosis, lumbosacral region
CPT/HCPCS: 72110; 72148